=== PATIENT | male | born 1945 | race Hispanic/Latino ===

== ENCOUNTER 2017-03-03 11:32 | Emergency (ER) | payer MEDICARE, MEDICAID ==
--- NOTE | 2017-03-03 12:15 | RAD ---
THREE VIEWS OF THE RIGHT SHOULDER: 03/03/2017 HISTORY: Right shoulder pain. No history of injury. COMPARISON: None. FINDINGS: There is dense opacity in the right perihilar region and right lung apex, stable when compared to a c hest radiograph performed on 04/16/2015. There is degenerative change involving the right AC joint with superior osteophyte formation. There is no widening of the right AC or CC interspace. There is no displaced fracture or evidence of dislo cation seen. There is an incompletely imaged transvenous pacing device. IMPRESSION: No acute fracture or dislocation seen. POS: [facility]
== END 2017-03-03 13:53 | disposition home or self-care (01) ==
LOC: ERS 11:32
DX: S43.401A Unspecified sprain of right shoulder joint, initial encounter (principal); E11.9 Type 2 diabetes mellitus without complications; E78.5 Hyperlipidemia, unspecified; I12.0 Hypertensive chronic kidney disease with stage 5 chronic kidney disease or end stage renal disease; N18.6 End stage renal disease; X58.XXXA Exposure to other specified factors, initial encounter

== ENCOUNTER 2017-03-15 21:02 | Observation (INO) | payer MEDICARE, MEDICAID ==
[2017-03-15 21:45] LABS: #Eosinphils 0.7 thou/uL (0.0-0.7); #Lymphocytes 1.6 thou/uL (1.20-3.40); #Monocytes 0.7 thou/uL (0.11-0.59); #Neutrophils 4.3 thou/uL (1.40-6.50); %Basophils 0.1 % (0.0-1.0); %Eosinophils 9.3 % (0.0-10.0); %Monocytes 9.4 % (0.0-10.0); Hematocrit 34.2 % (42.0-52.0); Mean Platelet Volume 6.5 fL (7.4-10.4); Red Blood Cell (RBC) Count 3.36 mill/uL (4.70-6.10); White Blood Cell (WBC) Count 7.3 thou/uL (4.8-10.8)
[2017-03-15 21:51] LABS: Bilirubin Negative (Negative); Blood, Urine Negative (Negative); Glucose, Urine (Dipstick) 100 mg/dL (Negative); Ketone, Urine Negative (Negative); Nitrite Negative (Negative); Protein, Urine (Dipstick) 300 mg/dL (Neg-Trace); Urobilinogen 0.2 mg/dL (0.2-1.0)
[2017-03-15 21:53] LABS: Bacteria/HPF None Seen HPF (None Seen); Hyaline Casts/LPF 0-3 HYALINE CAST LPF (0-3 Hyaline); RBC/HPF 0-3 HPF (0-3); Squamous Epithelial None Seen HPF (0-3); WBC/HPF None Seen HPF (0-3)
[2017-03-15 22:01] LABS: Lactic Acid - Sepsis 0.9 mmol/L (0.5-2.2)
--- NOTE | 2017-03-15 22:05 | RAD ---
RADIOGRAPH CHEST 1 VIEW: Date: 03/15/17 Time: 9:08 p.m. HISTORY: 71-year-old male with chest pain. COMPARISON: 04/16/15. FINDINGS: Left subclavian multilead AICD. Cardiomegaly. Dense, chronic opacification with volume loss at right pulmonary apex, causing chronic severe rightward deviation of the trachea. Extensive calcified pleura l plaque in the right hemithorax. Diffusely prominent interstitial markings bilaterally. No pneumotho rax. No new consolidation identified. No interval change overall. IMPRESSION: 1. Chronic consolidation with volume loss of right lung apex causing traction deviation of the t rachea to the right. 2. Unilateral calcified right pleural plaque, probably sequela of previous right empyema. 3. Cardiomegaly. 4. Automatic implantable cardioverter/defibrillator. 5. Chronic interstitial densities diffusely bilaterally throughout the lungs. 6. No interval change detected compared to 04/16/15. JESS [] POS: [facility]
[2017-03-15 22:07] LABS: ALT (SGPT) 9 U/L (8-55); AST (SGOT) 15 U/L (5-34); Alkaline Phosphatase 99 U/L (40-150); Anion Gap 17 mmol/L (10-20); BUN (Urea Nitrogen) 52 mg/dL (8.4-25.7); Bilirubin, Total 0.6 mg/dL (0.2-1.2); Calc. Creatinine Clearance 0 mL/min (70-130); Calcium 9.4 mg/dL (7.8-10.44); Carbon Dioxide 30 mmol/L (23-31); Chloride 94 mmol/L (98-107); Estimated GFR-MDRD 7; Lipase 43 U/L (8-78); Protein, Total 7.9 g/dL (5.8-8.1)
[2017-03-15] MEDS ORDERED: Ondansetron HCl/PF 4 MG/2 ML Vial IVP PRN (23:32)
[2017-03-15] MEDS ORDERED: Ondansetron ODT 4 MG TAB SL PRN (23:32)
[2017-03-15] MEDS ORDERED: Acetaminophen 325 MG TAB PO PRN (23:32)
[2017-03-15 23:54] VITALS: BMI 23.3
[2017-03-16] MEDS ORDERED: HYDROcodone/Acetaminophen 5/325 mg Tablet PO PRN (00:16)
[2017-03-16] MEDS ORDERED: Dextrose 5% in Water 1,000 ML IV PRN (00:25)
[2017-03-16] MEDS ORDERED: Dextrose 50% Abboject 50 ML SYRINGE SLOW IVP PRN (00:25)
[2017-03-16] MEDS ORDERED: HumaLOG 300 UNITS/3 ML VIAL SC PRN ×2 (00:25)
--- NOTE | 2017-03-16 00:25 | PDOC.EVN ---
Event Note - Event Note Event Note: [id number] H&P Dictated 1. ESRD 2. HTN 3. Acute urinary retention 4. Hyperkalemia plan: see orders
[2017-03-16 04:31] VITALS: TEMP 98.6
[2017-03-16 05:06] LABS: Anion Gap 18 mmol/L (10-20); BUN (Urea Nitrogen) 56 mg/dL (8.4-25.7); Calc. Creatinine Clearance 8 mL/min (70-130); Calcium 8.9 mg/dL (7.8-10.44); Carbon Dioxide 28 mmol/L (23-31); Chloride 96 mmol/L (98-107); Estimated GFR-MDRD 7
[2017-03-16 05:14] LABS: #Eosinphils 0.6 thou/uL (0.0-0.7); #Lymphocytes 1.2 thou/uL (1.20-3.40); #Monocytes 0.6 thou/uL (0.11-0.59); #Neutrophils 4.4 thou/uL (1.40-6.50); %Basophils 0.1 % (0.0-1.0); %Eosinophils 9.3 % (0.0-10.0); %Lymphocytes 17.8 % (21.0-51.0); Hematocrit 31.5 % (42.0-52.0); Mean Platelet Volume 6.9 fL (7.4-10.4); Red Blood Cell (RBC) Count 3.14 mill/uL (4.70-6.10); White Blood Cell (WBC) Count 6.9 thou/uL (4.8-10.8)
--- NOTE | 2017-03-16 08:08 | HP ---
DATE OF ADMISSION: 03/16/2017 CHIEF COMPLAINT: Urinary retention. HISTORY OF PRESENT ILLNESS: Patient is a 71-year-old male with past medical history of end-stage renal disease, hypertension, diabetes mellitus type 2, now came to the ER for urinary retention. Patient's last administration 1 week back since then he has having lower abdominal pain. Abdominal pain is suprapubic, constant pain, moderate in intensity, resolved after placing Haney catheter. Patient had Haney catheter placed in the ER. Patient had a urine output of 700 mL. Patient denies any nausea, denies any vomiting, denies any fever, denies any chills. PAST MEDICAL HISTORY: As per HPI. PAST SURGICAL HISTORY: AV fistula placement, AICD. SOCIAL HISTORY: Denies smoking, denies alcohol, denies any drugs. FAMILY HISTORY: Denies any heart problems. MEDICATIONS: Reviewed. REVIEW OF SYSTEMS: Constitutional: Denies any fever, denies any chills. Eyes : Denies any vision problems. Ears: Denies any hearing loss. Neck: Denies any neck pain. Cardiovascular: Denies any chest pain. Respiratory: Denies any dyspnea. Denies any cough. Gastrointestinal: Denies nausea, vomiting. Genitourinary: Positive for urinary retention. Integument: Denies any rash. All other review of systems are reviewed and are negative. PHYSICAL EXAMINATION: CONSTITUTIONAL/VITAL SIGNS: At the time of H&P performed, blood pressure is 130 /70, afebrile, pulse ox 97%. GENERAL: The patient appears comfortable. HEENT: Pupils are equal, round, and reactive. Anterior nares patent. Nose normal. Ears normal. Teeth intact. Tongue is moist. NECK: Supple, no JVD. CARDIOVASCULAR: S1, S2 present. Regular rate and rhythm, no murmurs, no rubs, no gallops. RESPIRATORY SYSTEM: No wheezing, no rhonchi. Breath sounds bilaterally. GASTROINTESTINAL: Abdomen is soft, nontender, no guarding, no organomegaly, no masses felt. MUSCULOSKELETAL: No edema. PSYCHIATRIC: Mood appropriate at this time. INTEGUMENTARY: No obvious rashes seen. LABORATORY DATA: At the time of H&P performed white count 7.3, hemoglobin 11.3 , platelet count is 262. BMP shows sodium 135, potassium 5.8, chloride 94, CO2 30, BUN 52, creatinine 7.41, glucose 158, UA protein 300, glucose 100. ASSESSMENT AND PLAN: The patient is 68-year-old male 1. Acute urinary retention. Continue Haney catheter. Plan to consult urology to evaluate the patient. Plan to place the patient on Flomax 0.4 mg p.o. daily. 2. End-stage renal disease plus hyperkalemia. Treat hyperkalemia medically. Nephrology will consult, possible dialysis in the a.m. 3. Hypertension. Monitor blood pressures. Continue home blood pressure medications. Hold lisinopril. 4. Diabetes mellitus type 2. Monitor blood sugars. We will do insulin sliding scale. Continue glipizide. Case was discussed in detail with the patient. RISSA
[2017-03-16 08:38] LABS: Hemoglobin A1c 6.7 % (4.0-6.0)
[2017-03-16] MEDS ORDERED: Tamsulosin HCl 0.4 MG CAP PO SCH (09:00)
[2017-03-16] MEDS ORDERED: FLU VACC TS2017-18 (>65YR) 0.5 ML SYRINGE IM ONE (09:00)
[2017-03-16] MEDS ORDERED: Aspirin 81 mg Enteric Coated Tablet PO SCH (09:00)
[2017-03-16] MEDS ORDERED: Clopidogrel Bisulfate 75 MG TAB PO SCH (09:00)
[2017-03-16] MEDS ORDERED: Famotidine 20 MG TAB PO SCH (09:00)
--- NOTE | 2017-03-16 09:26 | CON ---
DATE OF CONSULTATION: 03/16/2017 INPATIENT GENITOURINARY CONSULTATION REASON FOR REFERRAL: Urinary retention. HISTORY OF PRESENT ILLNESS: Mr. Garcia is a non-Korean speaking male who presents with history of difficulty voiding. He states that he normally urinates approximately 1 times per day; however, unable to void for the last few days. A Haney catheter was placed by the emergency room 16 Japanese 3-way, 700 mL of post-void residual urine obtained. Urinalysis initially obtained demonstrates 300 protein, 100 glucose, no evidence of microscopic or gross hematuria. On exam today he does have pink-tinged hematuria. Apparently comfortable and does relate some resolution of abdominal discomfort. PAST MEDICAL HISTORY: 1. Diabetes. 2. Hyperlipidemia. 3. Hypertension. 4. Congestive heart failure. 5. Coronary artery disease. Dr. Rodriguez 6. End-stage renal disease, on chronic dialysis. PAST SURGICAL HISTORY: Fistula of the left arm, right knee surgery, coronary artery drug-eluting stent 06/17/[address] Rodriguez. PSYCHIATRIC HISTORY: Negative. SOCIAL HISTORY: Denies alcohol or tobacco abuse. ALLERGIES: No known drug allergies. CURRENT MEDICATIONS: Include baby aspirin, Plavix 75 mg, glipizide, glucagon, heparin subcu t.i.d., isosorbide, metoprolol with Zofran, sevelamer. PHYSICAL EXAMINATION: VITAL SIGNS: Stable at 98.6, 16, 94, 163/78. GENERAL: Patient is in no acute distress, undergoing hemodialysis uneventfully. HEART: Regular rate. LUNGS: Clear to auscultation. ABDOMEN: Soft, nontender, nondistended. GENITOURINARY: Uncircumcised phallus. Catheter is adequately secured, demonstrating pink-tinged hematuria. EXTREMITIES: No cyanosis, clubbing or edema. Testes are descended. RECTAL: Digital rectal exam demonstrates approximately 40 gram prostate with no gross nodularity. Base of the prostate is somewhat difficult to palpate. PERTINENT LABORATORY DATA: White count 6, hemoglobin 10, platelets 248, creatinine 7.8. Urinalysis: 300 protein, 100 glucose, negative rbcs, negative wbcs. There is no imaging of record in our system. IMPRESSION/PLAN: 1. Mr. Garcia is a 71-year-old male, non-Korean speaking who has past medical history of end-stage renal disease and hemodialysis per history of voids 1 times per day. 2. History of coronary artery disease status post drug-eluting stent. 3. Congestive heart failure with last stress test 03/2015 demonstrating an EF of 31% with global hypokinesis. Current admission is due to abdominal pain due to acute urinary retention of 700 mL of post-void residual. His Haney catheter is in place, draining pink-tinged urine, I suspect hematuria likely catheter related as well as multiple antiplatelet therapy; however, be prudent to obtain a CT hematuria protocol. Continue indwelling Haney catheter for now, will initiate Flomax. Elective cystoscopy. Plan voiding trial in the next 1-2 weeks after medical therapy has been provided with bladder rest due to significant PVR. Hemoglobin A1c will be obtained to rule out significant diabetic cystopathy component for poorly controlled diabetes. We will follow along with you on this admission. RISSA
[2017-03-16 11:52] VITALS: BP 166/77
--- NOTE | 2017-03-16 12:25 | PDOC.EVN ---
Event Note - Event Note Event Note: Chart reviewed. Pt seen during dialysis. Will follow.
[2017-03-16] MEDS: Sevelamer Carbonate 800 MG TAB PO SCH ×2 (13:47→14:02)
[2017-03-16] MEDS: Heparin 5,000 UNITS/ML VIAL SC SCH ×2 (13:49→15:27)
[2017-03-16] MEDS: hydrALAZINE 10 MG TAB PO SCH ×2 (13:49→14:02)
--- NOTE | 2017-03-16 15:05 | CT ---
CT ABDOMEN AND PELVIS WITH AND WITHOUT IV CONTRAST: Indication: History of hematuria. Comparison: Noncontrast CT dated 08-02-11 FINDINGS: There is basilar atelectasis. There is suspicion for a trace small right pleural effusion. Both kidneys are atrophic in appearance which are most pronounced than on the prior exam. There are p rominent renal vascular calcifications bilaterally. There is a tiny punctate calcification within the inferior pole of the left kidney measuring 2 mm and may reflect a tiny nonobstructing stone. No hydr onephrosis is grossly evident. No definite ureteral calculus is noted. Haney catheter decompresses th e bladder. The bladder wall is difficult to evaluate on this exam due to the whitman be coapted The prostate is enlarged measuring 5.1 cm. There is a prominent amount of retained stool within the colon. There is a normal appendix in the rig ht lower quadrant. 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 There is scattered degenerative and osteoarthritic change. There are prominent vascular calcifications involving the dominant pelvic vasculature. No free fluid or pa thologically enlarged lymph nodes are evident. IMPRESSION: 1. Small atrophic appearing kidneys likely reflecting sequellae of underlying chronic medical renal d isease. 2. No definite solid renal lesion demonstrated. 3. Tiny hypodensities involving both kidneys, too small to characterize but statistically likely refl ective of a tiny cyst. 4. Tiny suspected nonobstructing calculus in the inferior pole left kidney measuring 2 mm. 5. Coapted bladder whitman due to decompression from Haney catheter. 6. Prominent amount of retained stool. 7. Trace right pleural effusion. Bibasilar atelectasis. 8. Prostate enlargement. 9. Findings were discussed with Dr. Knight at 1:50 p.m. on 03-16-17. POS: [facility]
--- NOTE | 2017-03-16 15:11 | PRG ---
DATE OF SERVICE: 03/16/2017 INPATIENT PROGRESS NOTE followup assessment, family at bedside. Per family, with translation, patient voids about 2-3 times a day. Urine output is pink /yellow tinged. CT demonstrates no significant pathology of concern. Patient would be hemodialyzed tomorrow. From urologic perspective, he may be discharged home anytime. Appointment with me provided for voiding trial on 03/26/2017 at 1:00 p.m., patient to bring all bottles of his medication. I did write for patient a prescription for Flomax 0.4 mg one p.o. daily, #30 with 5 refills. His Haney catheter was then transitioned to a leg bag, patient and family instructed regarding catheter care. Will sign off, call if any questions or concerns. RISSA
[2017-03-16] MEDS ORDERED: ISOVUE-370 76%-LOCM 1 ML ONE (17:46)
[2017-03-16] MEDS ORDERED: Simvastatin 20 MG TAB PO SCH (21:00)
--- NOTE | 2017-03-16 22:27 | DIS ---
DATE OF ADMISSION: 03/15/2017 DATE OF DISCHARGE: 03/16/2017 PRIMARY CARE PROVIDER: Maia Salgado PA-C CONSULTATIONS DURING THIS HOSPITALIZATION: Urology, Dr. Aide Knight and Nephrology, Dr. Zak Schofield. DISCHARGE DIAGNOSIS: Acute urinary retention. HOSPITAL COURSE: Mr. Karri Zeng is a pleasant 71-year-old gentleman who was admitted to [facility] on 03/16/2017 for acute urinary retention. He had a Haney catheter plac ed. He was seen by Urology Service. He was transitioned to a leg bag by Neurology Service, patient and his family were instructed regarding catheter care. He received a prescription for Flomax 0.4 mg once daily from Urology service. He is advised to follow up with Dr. Knight on 03/26/2017 at 1 :00 p.m. and with his primary care provider in 3-5 days. DISCHARGE MEDICATIONS: Include Flomax 0.4 mg daily, aspirin 81 mg daily, Plavix 75 mg daily, glipizi de 10 mg 2 times a day, hydralazine 10 mg 3 times a day, Imdur 120 mg daily, lisinopril 2.5 mg daily, Toprol-XL 25 mg at bedtime, Renvela 3200 mg 3 times a day, and simvastatin 20 mg at bedtime. He was also seen by Nephrology Service and received maintenance hemodialysis. On the day of discharge, he has a white count of 6900, hemoglobin 10.3, platelet count 248,000. Sodi um 136, potassium 5.6 prior to dialysis, creatinine 7.85 prior to dialysis. Hemoglobin A1c during [facility] hospitalization was 6.7. Many thanks for allowing me to participate in your patient's care. Please feel free to contact me wi th any questions or concerns. DISCHARGE DESTINATION: Home.
--- NOTE | 2017-03-17 06:12 | CON ---
DATE OF CONSULTATION: 03/16/2017 CONSULTING PHYSICIAN: Dr. Patiño. REASON FOR CONSULTATION: End-stage renal disease evaluation and care. REASON FOR ADMISSION: Urinary retention. HISTORY OF PRESENT ILLNESS: This is a 71-year-old male with history of end-stage renal dise ase, hypertension, type 2 diabetes, coronary artery disease, who came to the hospital with urinary re tention and abdominal pain and was admitted. He is on indwelling Haney and Urology evaluation is pen ding. No fever or chills. No nausea or vomiting, no chest pain, no palpitation reported. Complaints of ab dominal pain, which is better after Haney placement and he had 700 mL of residual urine after the kuldip cement of Haney. He is on dialysis, making minimal amount of urine. He has been having problem with voiding for a week now. PAST MEDICAL HISTORY: Positive for end-stage renal disease on hemodialysis Friday, Friday, and ; hypertension; type 2 diabetes; and coronary artery disease. PAST SURGICAL HISTORY: AV fistula placement and AICD. HOME MEDICATIONS: Include glipizide, Renvela, Toprol, Apresoline, simvastatin, Zestril, Imdur, aspir in, and Plavix. ALLERGIES: No known drug allergies. SOCIAL HISTORY: No smoking, alcohol or illicit drug abuse. FAMILY HISTORY: No history of any kidney disease. REVIEW OF SYSTEMS: The following complete review of systems was negative, unless otherwise mentioned in the HPI or below: Constitutional: Weight loss or gain, ability to conduct usual activities. Skin: Rash, itching. Eyes: Double vision, pain. ENT/Mouth: Nose bleeding, neck stiffness, pain, tenderness. Cardiovascular: Palpitations, dyspnea on exertion, orthopnea. Respiratory: Shortness of breath, wheezing, cough, hemoptysis, fever or night sweats. Gastrointestinal: Poor appetite, abdominal pain, heartburn, nausea, vomiting, constipation, or diarr hea. Genitourinary: Urgency, frequency, dysuria, nocturia. Musculoskeletal: Pain, swelling. Neurologic/Psychiatric: Anxiety, depression. Allergy/Immunologic: Skin rash, bleeding tendency. PHYSICAL EXAMINATION: GENERAL: This is a thin-built male, in no apparent distress. VITAL SIGNS: Temperature 98.6, pulse 74, respiratory rate 16, blood pressure 163/70. HEENT: Atraumatic, normocephalic. Oral mucosa is moist. NECK: Supple, no masses. CARDIOVASCULAR: S1, S2 heard. Rate and rhythm regular. RESPIRATORY: Clear. GASTROINTESTINAL: Abdomen is soft. MUSCULOSKELETAL: No tenderness. No edema. DERMATOLOGIC: No skin rash. NEUROLOGIC: Alert and awake. PSYCHIATRIC: Mood and affect normal. GENITOURINARY: Haney catheter with blood tinged urine. LABORATORY DATA: Potassium is 5.8, BUN is 56, creatinine is 7.8. Hemoglobin is 11.3. ASSESSMENT AND PLAN: 1. End-stage renal disease with hyperkalemia. Plan to have emergent dialysis. . 2. Hyperkalemia. Limit potassium in the diet, most likely from urinary retention. We will continue on dialysis Friday, Friday, and Friday. 3. Edema, controlled. 4. Hypertension. 5. Anemia, mild. Monitor potassium closely. Dialysis as tolerated. We will continue to follow. Thank you for the consult.
== END 2017-03-16 17:00 | disposition home or self-care (01) ==
LOC: ERS 21:02 → 2SW 22:35
PROVIDERS: ADMIT Internal Medicine; ATTEND Internal Medicine
DX: R33.9 Retention of urine, unspecified (principal); E11.22 Type 2 diabetes mellitus with diabetic chronic kidney disease; I13.2 Hypertensive heart and chronic kidney disease with heart failure and with stage 5 chronic kidney disease, or end stage renal disease; I50.9 Heart failure, unspecified; N18.6 End stage renal disease; E87.5 Hyperkalemia; I25.10 Atherosclerotic heart disease of native coronary artery without angina pectoris; R10.9 Unspecified abdominal pain; R60.9 Edema, unspecified; D63.1 Anemia in chronic kidney disease; Z99.2 Dependence on renal dialysis; Z79.84 Long term (current) use of oral hypoglycemic drugs; Z79.02 Long term (current) use of antithrombotics/antiplatelets; Z79.899 Other long term (current) drug therapy; Z95.810 Presence of automatic (implantable) cardiac defibrillator; Z95.818 Presence of other cardiac implants and grafts; Z98.890 Other specified postprocedural states
CPT/HCPCS: 51702; 71010; 74178; 80048; 80053; 82947; 83036; 83605; 83690; 85025 ×2; 87086; 99285; G0378; 36415; 81003; 81015; 90935; A4216; G0257; J1644

== ENCOUNTER 2017-06-13 11:45 | Emergency (ER) | payer MEDICARE, MEDICAID ==
[2017-06-13 13:06] LABS: #Eosinphils 0.4 thou/uL (0.0-0.7); #Lymphocytes 0.6 thou/uL (1.20-3.40); #Monocytes 0.5 thou/uL (0.11-0.59); #Neutrophils 3.6 thou/uL (1.40-6.50); %Basophils 0.4 % (0.0-1.0); %Eosinophils 8.2 % (0.0-10.0); %Lymphocytes 12.4 % (21.0-51.0); %Monocytes 8.8 % (0.0-10.0); %Neutrophils 70.3 % (42.0-75.0); Hemoglobin 10.6 g/dL (14.0-18.0); Mean Corpuscular Hemoglobin 32.6 pg (27.0-31.0); Mean Platelet Volume 7.4 fL (7.4-10.4); Platelet Count 173 thou/uL (130-400); RBC Distribution Width 12.8 % (11.5-14.5); Red Blood Cell (RBC) Count 3.24 mill/uL (4.70-6.10); White Blood Cell (WBC) Count 5.2 thou/uL (4.8-10.8)
[2017-06-13 13:12] LABS: INR-International Normal Ratio 1.1; PTT 32.2 SEC (22.9-36.1); Prothrombin Time 14.7 SEC (12.0-14.7)
[2017-06-13 13:29] LABS: ALT (SGPT) 10 U/L (8-55); AST (SGOT) 13 U/L (5-34); Albumin 4.4 g/dL (3.4-4.8); Alkaline Phosphatase 141 U/L (40-150); Anion Gap 13 mmol/L (10-20); BUN (Urea Nitrogen) 16 mg/dL (8.4-25.7); Bilirubin, Total 0.7 mg/dL (0.2-1.2); Calc. Creatinine Clearance 0 mL/min (70-130); Calcium 9.7 mg/dL (7.8-10.44); Carbon Dioxide 35 mmol/L (23-31); Chloride 93 mmol/L (98-107); Estimated GFR-MDRD 15; Globulin 3.9 g/dL (2.4-3.5); Glucose 215 mg/dL (83-110); Magnesium 2.2 mg/dL (1.6-2.6); Potassium 4.5 mmol/L (3.5-5.1); Protein, Total 8.3 g/dL (5.8-8.1); Sodium 136 mmol/L (136-145)
--- NOTE | 2017-06-13 13:30 | RAD ---
PORTABLE CHEST: Date: 06/13/17 HISTORY: Shoulder pain. Back pain. COMPARISON: 03/15/17. FINDINGS: Cardiomegaly. Mild vascular engorgement. Opacification in the right apex with evidence of cicatrizati on and deviation of the trachea into the right apex is again noted. These findings were all stable. P acemaker leads are unchanged. IMPRESSION: Stable chest findings. POS: [facility]
[2017-06-13 13:36] LABS: CKMB 1.3 ng/mL (0-6.6); Troponin I 0.028 ng/mL (< 0.028)
[2017-06-13] MEDS ORDERED: Nitroglycerin 2% Ointment 1 INCH/1 GM Packet ONE (14:38)
[2017-06-13] MEDS ORDERED: Furosemide 40 MG/4 ML VIAL ONE (14:38)
--- NOTE | 2017-06-13 16:52 | CON ---
DATE OF CONSULTATION: 06/13/2017 DATE OF ADMISSION: 06/13/2017 PRIMARY CARE PHYSICIAN: Dr. Caldwell PRIMARY ICD 9 CODER: Rory Wall M.D. PRIMARY WELDER APPRENTICE COMBINATION: Charly Rodriguez M.D. REQUESTING PHYSICIAN: Tamar Baron M.D., in the Emergency Department. CHIEF COMPLAINT: Right shoulder pain and newly elevated BNP. HISTORY OF PRESENT ILLNESS: Mr. Karri Zeng is a 71-year-old male with history of end-stage renal disease on Friday, Friday, Friday hemodialysis at [facility], followed by Dr. Wall chronically. He also has diabetes mellitus type 2, non-insulin dependent, hypertension, BPH, coronar y artery disease and hyperlipidemia. He does have a history of a PTCA in 09/2016 and had 3 stents placed to the right coronary artery, but also has severe small vessel disease that required necessitated medical management. The patient pre sents to the emergency department today with complaints of right back pain radiating up to the should er and down the upper part of the right arm that began about 2 weeks ago after he picked up a heavy b ucket. He has had trouble lying flat or lying on that side because of increased pain. Denies any sh ortness of breath. He typically slept in bed on 2 pillows for quite a long time. He tried taking Motrin once that did not seem to really help. The pain persisted for 2 weeks without relenting. When asked of like this previous cardiac pain, he said nothing like it. He said sometimes putting pressure on the area makes the pain go away for a little while, but movemen t certainly makes it worse. He denies any fevers or chills, no nausea or vomiting, no diarrhea or constipation, no dyspnea on exe rtion. He denies any PND or orthopnea. Last echocardiogram here was done on 04/17/2015 showed EF of 40%-45% with a moderate global hypokines is. Grade I diastolic dysfunction present, fairly normal valves except for moderate MR and trace TR. He is set up to have another echocardiogram done next week with Dr. Rodriguez and see him in followup soon. No other current complaints. PAST MEDICAL HISTORY: 1. End-stage renal disease, on Friday, Friday, Friday hemodialysis at [facility]. 2. Diabetes mellitus type 2, non-insulin dependent. 3. Hypertension. 4. BPH. 5. Coronary artery disease. 6. Hyperlipidemia. PAST SURGICAL HISTORY: 1. PTCA with stents x3 in 09/2016. 2. Permanent pacemaker placement sometime in 2014, looks like on 06/22/2014. He had a pacemaker kuldip abena for inducible sustained monomorphic V-tach and significant AV tara dysfunction with chronic isch emic cardiomyopathy and class 2-3 congestive heart failure, systolic and diastolic combined. He had placement at time of intraventricular ICD generator and right atrial pacing lead and right ventricula r transvenous defibrillator lead and pacing leads. This is a Carenat[employer] device including generator, a trial, left ventricular and transvenous defibrillator leads. This was placed by Dr. Nicholas Guerrero. He also had left arm fistula placement sometime around 2011 and 2012. MEDICATIONS: 1. Zocor 20 mg p.o. at bedtime. 2. Isosorbide mononitrate 120 mg p.o. daily. 3. Glipizide 10 mg daily. 4. Hydralazine 10 mg p.o. t.i.d. 5. Toprol-XL 50 mg daily. 6. Plavix 75 mg daily. 7. Flomax 0.4 mg p.o. at bedtime. 8. Aspirin 81 mg daily. 9. Lisinopril 2.5 mg p.o. daily. 10. Renvela 1600 mg p.o. t.i.d. a.c. ALLERGIES: NKDA. FAMILY HISTORY: Negative for clotting or bleeding disorder, no immune dysfunction. SOCIAL HISTORY: Negative for habits x3. He did have a history of heavy alcohol use and quit about h meron a year ago. REVIEW OF SYSTEMS: Ten point review of systems performed, negative for all systems except stated as per HPI. PHYSICAL EXAMINATION: VITAL SIGNS: Temperature 98.8, pulse 84, blood pressure 148/75, respiratory rate 12, satting 95% on room air. GENERAL: He is awake. He is alert. He is oriented x3. He is an elderly Latin-Greek male appear s to be in no acute distress. HEENT: Normocephalic, atraumatic. Pupils equal, reactive bilaterally. Mucous membranes are moist. No visible lesions. No thrush. NECK: Supple, without lymphadenopathy, JVD, or thyromegaly. Normal carotid without bruits. LUNGS: Clear anteriorly, posteriorly has some faint bibasilar crackles. CARDIOVASCULAR: He has regular rhythm. He is paced on the monitor. He has normal S1 and S2. He do es have a grade 2-3/6 holosystolic murmur best heard at the apex. ABDOMEN: Soft, it is nontender, nondistended. No masses or organomegaly. EXTREMITIES: No cyanosis, no clubbing. Trace pedal edema. He has got thready dorsalis pedis and po sterior tibial pulses. Left upper arm AV fistula has a palpable thrill. SKIN: Otherwise warm, moist and well well-perfused. He has no other rash or lesion. MUSCULOSKELETAL: Large joints appear normal. There is no inflammation. No palpable effusions. He is tender to palpation along the scaliness in the rhomboideus muscles on the right posterior chest. It reproduces his pain, feels better with a constant pressure, but is tender. He gets a referral of pain when manipulated up to the upper shoulder and down his arm and reproduces his symptoms. NEUROLOGIC: Cranial nerves II-XII are grossly intact. He has no focal neurologic deficits, and norm al speech pattern. LABORATORY EVALUATION: Sodium 136, potassium 4.5, chloride 93, bicarbonate 35, BUN 16, creatinine 3. 93, and glucose is 215. He got complete normal liver functions. CBC showed a white count of 5.2, hemoglobin 10.6, hematocrit of 32.1, platelet count 173,000. BNP wa s 2070.3 which is actually the best since 03/2014. Two months ago, he was at [id number]. INR is 1.1. CK-MB normal at 1.3. Troponin I is normal at 0.028. RADIOGRAPHIC STUDIES: He has a chest x-ray with no acute cardiopulmonary changes and stable chronic changes, particularly to the right upper lobe area. ASSESSMENT AND PLAN: 1. Musculoskeletal, right-sided back pain after lifting heavy bucket. The patient sustained a rhomb oideus muscle strain. At this point, we will place him on Flexeril 10 mg p.o. t.i.d. p.r.n., a presc ription for 30 tablets has been sent to the pharmacy. It is liver metabolized, does not need to be r enally dosed. We also sent a call-in prescription for Motrin 400 mg. He could use that t.i.d. as ne eded for pain. I did encourage him to use a low to medium setting on a heating pad several times a d ay and I recommended he take it easy without arm and shoulder for the next several days. 2. Coronary artery disease. The patient had 3 stents placed in his right coronary artery back on ; prior to that in 05/2014 he had stent placed to left circumflex. His last heart catheterizati on had revealed severe small vessel disease that was not amenable to percutaneous intervention. I wi ll continue his medical management. He has an appointment with Dr. Rodriguez coming up and echo plan carlitos for next week. 3. Chronic systolic, diastolic congestive heart failure secondary to ischemic cardiomyopathy and hyp ertensive cardiomyopathy accordingly. His BNP is actually better than it has been in over 2 years. This was discussed with the emergency physicians and once they realized that they agreed that he brou ght it to be in the hospital. 4. Essential hypertension. The patient is pretty well controlled on his hydralazine, Toprol-XL, lis inopril. 5. End-stage renal disease, on hemodialysis. He takes Renvela 1600 mg t.i.d. We will continue. We will contact Dr. Wall and notify him of his presentation here. 6. History of Benign prostatic hypertrophy, on Flomax. We will continue. 7. Anemia of renal disease, managed by Dr. Wall. 8. Hyperlipidemia, on Zocor 20. The patient has excellent followup. We will let him go home from the emergency department. He is to return if his symptoms had returned that are typical to his regular chest pain or has increased conc nagi. Thank you very much for this consult. I will follow along with you.
== END 2017-06-13 15:59 | disposition home or self-care (01) ==
LOC: ERS 11:45
DX: S46.911A Strain of unspecified muscle, fascia and tendon at shoulder and upper arm level, right arm, initial encounter (principal); I25.10 Atherosclerotic heart disease of native coronary artery without angina pectoris; I13.2 Hypertensive heart and chronic kidney disease with heart failure and with stage 5 chronic kidney disease, or end stage renal disease; N18.5 Chronic kidney disease, stage 5; E11.22 Type 2 diabetes mellitus with diabetic chronic kidney disease; I50.9 Heart failure, unspecified; E78.5 Hyperlipidemia, unspecified; Z79.899 Other long term (current) drug therapy; Z79.82 Long term (current) use of aspirin; X58.XXXA Exposure to other specified factors, initial encounter
CPT/HCPCS: 71045; 80053; 82553; 83735; 83880; 84484; 85025; 85610; 85730; 93005; 94760; 96374; J1940

== ENCOUNTER 2018-06-01 09:49 | Emergency (ER) | payer MEDICARE, MEDICAID ==
[2018-06-01 10:28] LABS: #Eosinphils 0.9 thou/uL (0.0-0.7); #Lymphocytes 0.8 thou/uL (1.20-3.40); #Monocytes 0.4 thou/uL (0.11-0.59); %Basophils 0.5 % (0.0-1.0); %Eosinophils 11.2 % (0.0-10.0); %Lymphocytes 9.7 % (21.0-51.0); %Monocytes 5.2 % (0.0-10.0); %Neutrophils 73.3 % (42.0-75.0); Hemoglobin 11.9 g/dL (14.0-18.0); Mean Corpuscular HGB CONC 32.2 g/dL (32.0-36.0); Mean Corpuscular Volume 99.5 fL (78.0-98.0); Mean Platelet Volume 7.5 fL (7.4-10.4); Platelet Count 174 thou/uL (130-400); RBC Distribution Width 13.3 % (11.5-14.5); Red Blood Cell (RBC) Count 3.71 mill/uL (4.70-6.10); White Blood Cell (WBC) Count 8.2 thou/uL (4.8-10.8)
[2018-06-01 10:44] LABS: ALT (SGPT) 14 U/L (8-55); AST (SGOT) 18 U/L (5-34); Albumin 4.2 g/dL (3.4-4.8); Alkaline Phosphatase 126 U/L (40-150); Anion Gap 16 mmol/L (10-20); BUN (Urea Nitrogen) 30 mg/dL (8.4-25.7); Bilirubin, Total 1.1 mg/dL (0.2-1.2); Calc. Creatinine Clearance 0 mL/min (70-130); Calcium 9.8 mg/dL (7.8-10.44); Carbon Dioxide 33 mmol/L (23-31); Chloride 94 mmol/L (98-107); Estimated GFR-MDRD 9; Globulin 3.9 g/dL (2.4-3.5); Glucose 126 mg/dL (83-110); Potassium 4.1 mmol/L (3.5-5.1); Protein, Total 8.1 g/dL (5.8-8.1); Sodium 139 mmol/L (136-145)
== END 2018-06-01 13:24 | disposition home or self-care (01) ==
LOC: ERS 09:49
DX: R55 Syncope and collapse (principal); I12.0 Hypertensive chronic kidney disease with stage 5 chronic kidney disease or end stage renal disease; N18.6 End stage renal disease; E11.22 Type 2 diabetes mellitus with diabetic chronic kidney disease; E78.5 Hyperlipidemia, unspecified; Z79.82 Long term (current) use of aspirin; Z79.899 Other long term (current) drug therapy
CPT/HCPCS: 36415; 80053; 85025; 93005

== ENCOUNTER 2018-06-23 09:59 | Outpatient (CLI) | payer MEDICARE, MEDICAID ==
--- NOTE | 2018-06-23 12:09 | RAD ---
AIR CONTRAST ESOPHOGRAM: Indications; Dysphagia. Swallowed food sticking. FINDINGS: Esophagus shows numerous tertiary contractions. There is retraction of the upper esophagus to the rig ht at the area of right upper lobe scarring. There is luminal narrowing at the EG junction. A swallowed 12 mm barium tablet lodged at the EG junction and would not pass through with repeated sw allows. No reflux was demonstrated when patient was placed recumbent. IMPRESSION: 1. Mildly dilated mid and upper esophagus with retraction of the esophagus to the right in the area o f right upper lobe scarring. Dilatation of the upper mid esophagus. There are numerous tertiary contr actions. 2. Luminal narrowing at the EG junction. A 12 mm barium tablet would not pass through this area of st ricture. POS: CAROLYN
== END 2018-06-23 10:00 | disposition home or self-care (01) ==
LOC: RAD 09:59
PROVIDERS: ATTEND Physician Assistant Medical
DX: R13.10 Dysphagia, unspecified (principal); K21.9 Gastro-esophageal reflux disease without esophagitis; K22.8 Other specified diseases of esophagus; K22.2 Esophageal obstruction
CPT/HCPCS: 74220

== ENCOUNTER 2018-06-30 08:07 | Day surgery (SDC) | payer MEDICARE, MEDICAID ==
[2018-06-30 09:19] LABS: INR-International Normal Ratio 1.3; Prothrombin Time 16.3 SEC (12.0-14.7)
[2018-06-30] MEDS ORDERED: PROPOFOL 200 MG/20 ML VIAL ONE (13:36)
--- NOTE | 2018-06-30 18:07 | OP ---
DATE OF PROCEDURE: 06/30/2018 PROCEDURE PERFORMED: Esophagogastroduodenoscopy with esophageal dilation over guidewire and biopsy. PREOPERATIVE DIAGNOSES: Esophageal dysphagia. Barium esophagogram showed a dilated arxyr-sd-hiq esophagus and a hang-up of a barium tablet in the distal esophagus. DESCRIPTION OF PROCEDURE: Informed consent was obtained from the patient. He was sedated with total intravenous anesthesia. The endoscope was advanced easily to the second portion of the duodenum, and retroflexion was performed in the stomach. The esophagus had external compression in the dkb-rs-hdubg esophagus at the 25 cm level. There was no mucosal defect in this area. The esophagus insufflated well above and below this site. The scope could be advanced through the area to the distal esophagus. There was a slight ring in the distal esophagus above a 1-cm hiatal hernia. The stomach had nonerosive erythematous gastritis in the antrum. Biopsies were obtained to rule out H. pylori. Retroflexed views in the stomach were normal. There was a small amount of retained vegetable matter in the stomach fundus. The pylorus was normal, and the first portion of the duodenum was normal. The second portion of the duodenum had a tortuosity to advance the scope through into the distal second portion. There was no true focal stricture in this area; however, it was not easy to pass the scope through to the more distal duodenum. However, we were able to accomplish this. I biopsied the area of the tortuosity, but there again was no focal stricture or evidence of a mucosal mass or lesion focally. An esophageal dilator was passed. The esophagus was dilated to 18 mm with a Savary dilator over a guidewire. Second-look endoscopy showed no change in the esophageal mucosa after dilation. IMPRESSION: 1. External compression of the mid esophagus around 25 cm. This correlates with the findings on the barium esophagogram of a dilated more proximal esophagus. The esophagus above this area insufflated well, as it did below this area. This could be related to a prominent aortic arch or scar tissue in that area. 2. Slight esophageal ring above at the Z-line above a 1-cm hiatal hernia. Esophageal dilation was performed to 18 mm with a Savary dilator over a guidewire. There was no change on second-look endoscopy after dilation. 3. Erythematous gastritis in the antrum, biopsied to rule out Helicobacter pylori. 4. Tortuous second portion of the duodenum without obvious focal stricture or mucosal defect. Biopsies were obtained in this area. There was some very small amount of retained vegetable matter in the fundus of the stomach. RECOMMENDATIONS: 1. Await histopathology. 2. Follow up in GI clinic in 3 weeks. Job ID: [id number]
== END 2018-06-30 13:19 | disposition home or self-care (01) ==
LOC: SDC 08:07
PROVIDERS: ATTEND Internal Medicine Gastroenterology
PROC: 0DB78ZX Excision of Stomach, Pylorus, Via Natural or Artificial Opening Endoscopic, Diagnostic (ICD-10-PCS; principal; 2018-06-30)
PROC: 0D758ZZ Dilation of Esophagus, Via Natural or Artificial Opening Endoscopic (ICD-10-PCS; 2018-06-30)
DX: K22.2 Esophageal obstruction (principal); K31.9 Disease of stomach and duodenum, unspecified; K44.9 Diaphragmatic hernia without obstruction or gangrene; I25.10 Atherosclerotic heart disease of native coronary artery without angina pectoris; E78.5 Hyperlipidemia, unspecified; I11.0 Hypertensive heart disease with heart failure; I50.9 Heart failure, unspecified; Z79.02 Long term (current) use of antithrombotics/antiplatelets; Z79.82 Long term (current) use of aspirin; Z79.84 Long term (current) use of oral hypoglycemic drugs; Z79.899 Other long term (current) drug therapy; Z95.5 Presence of coronary angioplasty implant and graft
CPT/HCPCS: 85610; 88305; 88312

== ENCOUNTER 2018-07-30 13:52 | Emergency (ER) | payer MEDICARE, MEDICAID ==
[2018-07-30 15:39] LABS: #Lymphocytes 1.3 thou/uL (1.20-3.40); #Monocytes 0.5 thou/uL (0.11-0.59); #Neutrophils 4.5 thou/uL (1.40-6.50); %Basophils 0.3 % (0.0-1.0); %Lymphocytes 18.1 % (21.0-51.0); %Monocytes 7.1 % (0.0-10.0); %Neutrophils 60.5 % (42.0-75.0); Hemoglobin 11.3 g/dL (14.0-18.0); Mean Corpuscular Hemoglobin 33.4 pg (27.0-31.0); Mean Corpuscular Volume 98.1 fL (78.0-98.0); Mean Platelet Volume 7.1 fL (7.4-10.4); Platelet Count 242 thou/uL (130-400); Red Blood Cell (RBC) Count 3.37 mill/uL (4.70-6.10); White Blood Cell (WBC) Count 7.4 thou/uL (4.8-10.8)
[2018-07-30 16:04] LABS: ALT (SGPT) 10 U/L (8-55); AST (SGOT) 13 U/L (5-34); Alkaline Phosphatase 146 U/L (40-150); Anion Gap 17 mmol/L (10-20); BUN (Urea Nitrogen) 43 mg/dL (8.4-25.7); Bilirubin, Total 0.7 mg/dL (0.2-1.2); Calc. Creatinine Clearance 0 mL/min (70-130); Calcium 9.7 mg/dL (7.8-10.44); Carbon Dioxide 33 mmol/L (23-31); Chloride 91 mmol/L (98-107); Estimated GFR-MDRD 7; Glucose 205 mg/dL (83-110); Potassium 3.8 mmol/L (3.5-5.1); Protein, Total 8.2 g/dL (5.8-8.1); Sodium 137 mmol/L (136-145)
[2018-07-30 16:05] LABS: Globulin 4.2 g/dL (2.4-3.5)
--- NOTE | 2018-07-30 16:50 | ULT ---
Exam: Scrotal ultrasound including color and spectral Doppler imaging: HISTORY: Pain Right testes measures 2.7 x 2.0 x 2.8 cm. Left testes measures 2.4 x 2.1 x 3.2 cm. Both epididymal regions are within normal limits. Questionable small epididymal appendix. Questionable small hydrocele. Vascular flow is noted to both testes. No evidence for testicular torsion. IMPRESSION: Trace bilateral hydroceles. No intratesticular mass or testicular torsion.
--- NOTE | 2018-07-30 19:41 | CT ---
CT abdomen noncontrast CT pelvis noncontrast: (Urolithiasis protocol) DATE: 07/30/2018 HISTORY: 72-year-old male with left scrotal and left inguinal pain COMPARISON: 03/16/2017 TECHNIQUE: IV injection of iodinated contrast media: None Oral contrast media: None FINDINGS: Other than for urolithiasis, the lack of IV and oral contrast limits the evaluation. No inguinal hernia. No signs of colonic diverticulitis. No small bowel dilation. No appendicitis. No abdominal aortic aneurysm. Bilaterally atrophic kidneys. No hydronephrosis. No bladder calculus. Atherosclerotic calcification of renal arteries and branches makes it difficult to evaluate for small nephrolithiasis. No large nephrolithiasis. Within the limitations of noncontrast scan, no major pathology of liver, adrenals, pancreas, or splee n identified. Previously there was a Haney catheter. Currently, there is no Haney catheter. Bladder volume is small . No ascites or pneumoperitoneum. Small focal infiltrate-like density at posterior base of right lower lobe appears similar to prior CT , and is apparently chronic. There is a new finding of an approximately 4 x 2 x 3 cm well-circumscribed low density mass located p osterior to the left distal external iliac artery and vein, and anterior to the left acetabulum. It has a density of 20 Hounsfield units.. IMPRESSION: 1) no obstructive uropathy. 2) chronic renal failure. 3) low density mass at the left groin as described above. Without IV contrast, this cannot be further characterized. Etiology unknown. This may be the source of patient's pain..
== END 2018-07-30 21:00 | disposition home or self-care (01) ==
LOC: ERS 13:52
DX: R19.09 Other intra-abdominal and pelvic swelling, mass and lump (principal); E78.5 Hyperlipidemia, unspecified; I12.0 Hypertensive chronic kidney disease with stage 5 chronic kidney disease or end stage renal disease; N18.6 End stage renal disease; E11.22 Type 2 diabetes mellitus with diabetic chronic kidney disease; Z79.899 Other long term (current) drug therapy; Z79.01 Long term (current) use of anticoagulants; Z79.82 Long term (current) use of aspirin; Z79.84 Long term (current) use of oral hypoglycemic drugs
CPT/HCPCS: 36415; 74176; 76870; 80053; 85025; 93976

== ENCOUNTER 2018-08-09 10:52 | Inpatient (IN) | payer MEDICARE, MEDICAID ==
[2018-08-09] MEDS ORDERED: Piperacillin/Tazobactam 4.5 GM VIAL ONE (11:34)
[2018-08-09] MEDS ORDERED: Acetaminophen 500 MG TAB ONE ×2 (11:35→11:42)
[2018-08-09 11:38] LABS: #Eosinphils 0.2 thou/uL (0.0-0.7); #Lymphocytes 1.3 thou/uL (1.20-3.40); #Monocytes 0.9 thou/uL (0.11-0.59); #Neutrophils 14.7 thou/uL (1.40-6.50); %Basophils 0.2 % (0.0-1.0); %Eosinophils 1.4 % (0.0-10.0); %Lymphocytes 7.7 % (21.0-51.0); %Monocytes 5.1 % (0.0-10.0); %Neutrophils 85.8 % (42.0-75.0); Hemoglobin 10.5 g/dL (14.0-18.0); Mean Corpuscular HGB CONC 32.5 g/dL (32.0-36.0); Mean Corpuscular Volume 98.7 fL (78.0-98.0); Platelet Count 267 thou/uL (130-400); RBC Distribution Width 13.4 % (11.5-14.5); Red Blood Cell (RBC) Count 3.28 mill/uL (4.70-6.10); White Blood Cell (WBC) Count 17.1 thou/uL (4.8-10.8)
[2018-08-09 12:02] LABS: ALT (SGPT) 7 U/L (8-55); AST (SGOT) 9 U/L (5-34); Albumin 4.1 g/dL (3.4-4.8); Alkaline Phosphatase 125 U/L (40-150); Anion Gap 24 mmol/L (10-20); BUN (Urea Nitrogen) 55 mg/dL (8.4-25.7); Bilirubin, Total 0.7 mg/dL (0.2-1.2); CK (CPK) 55 U/L (30-200); Calc. Creatinine Clearance 0 mL/min (70-130); Calcium 9.4 mg/dL (7.8-10.44); Carbon Dioxide 24 mmol/L (23-31); Chloride 91 mmol/L (98-107); Estimated GFR-MDRD 6; Globulin 3.8 g/dL (2.4-3.5); Glucose 92 mg/dL (83-110); Lipase 18 U/L (8-78); Magnesium 2.1 mg/dL (1.6-2.6); Potassium 4.7 mmol/L (3.5-5.1); Protein, Total 7.9 g/dL (5.8-8.1); Sodium 134 mmol/L (136-145)
[2018-08-09] MEDS ORDERED: Iopamidol 370 76% 100 ML VIAL ONE (12:03)
[2018-08-09] MEDS ORDERED: Vancomycin HCl 1 GM in Premix Bag 1 BAG IVPB SCH ×2 (12:15→17:15)
--- NOTE | 2018-08-09 12:26 | CT ---
CT OF THE ABDOMEN AND PELVIS WITH IV CONTRAST INDICATION: Right inguinal pain, fever and reported mass in the inguinal region COMPARISON: CT abdomen and pelvis without contrast dated July 30, [address] of the abdomen and pelv is with and without contrast dated March 16, 2017. FINDINGS: ABDOMEN: Lung bases: There is mild patchy airspace opacity within the right lower lobe which may be related to subsegmental volume loss; however, developing pneumonia cannot be entirely excluded. Liver: There are areas of mild nonmasslike enhancement surrounding the gallbladder fossa which may be related to transient hepatic attenuation difference. This was not seen on the comparison examination in February 2017. Gallbladder: Normal appearing. Pancreas: Normal. Adrenal glands: Normal. Spleen: Normal. Kidneys: Atrophic but stable Retroperitoneum of the upper abdomen: No lymphadenopathy is evident. There is scattered vascular calc ifications of the abdominal pelvic vasculature. Pelvis: Small and large bowel: Normal Bladder: Normal. Rectal and perirectal soft tissues:There is a moderate amount of retained stool within the rectum and distal colon. Reproductive structures: Normal. Free fluid in pelvis: No free fluid is evident. Lymphadenopathy pelvis: No lymphadenopathy is evident. The hypodensities seen adjacent to the left co mmon femoral artery has decreased in size now measuring 1.7 cm were present measuring 3 cm and is consistent with a left iliopsoas bursitis. Osseous structures: No acute osseous abnormality. No destructive osteolytic or osteoblastic lesion i s identified. There is scattered degenerative and osteoarthritic changes. IMPRESSION: 1. Decrease in size of the left iliopsoas bursitis. 2. Patchy airspace opacity in the right lower lobe. Recommend correlation for pneumonia. 3. Likely transient hepatic attenuation difference within the liver adjacent to the gallbladder.
--- NOTE | 2018-08-09 12:42 | RAD ---
Chest AP view INDICATION: Fever and body aches COMPARISON: June 13, 2017 FINDINGS: Lungs:The right upper hemithorax pleural-parenchymal opacity is stable. Chronic fibrotic changes stab le. Cardiac silhouette pulmonary vasculature:Moderate cardiomegaly and multi lead AICD is unchanged. Pleural spaces:No pleural effusion or pneumothorax is demonstrated. Upper abdomen:No abnormality seen. Osseous structures: No acute osseous abnormality. There is scattered degenerative and osteoarthritic change present. Additional findings:None. IMPRESSION: No definite acute cardiopulmonary abnormality. Stable examination compared to a prior hermes ed June 13, 2017
[2018-08-09 15:03] LABS: INR-International Normal Ratio 3.4; Prothrombin Time 34.3 SEC (12.0-14.7)
[2018-08-09] MEDS ORDERED: Sodium Chloride 0.9% 100 ML ONE (15:30)
[2018-08-09 15:33] LABS: Lactic Acid 1.5 mmol/L (0.5-2.2)
[2018-08-09] MEDS ORDERED: Dextrose 50% Abboject 50 ML SYRINGE ONE (15:41)
[2018-08-09] MEDS ORDERED: Acetaminophen 325 MG TAB PO PRN (16:02)
[2018-08-09 16:19] VITALS: BMI 23.4
[2018-08-09] MEDS ORDERED: Vancomycin HCl 250 MG in Sodium Chloride 0.9% 100 ML IVPB SCH (17:15)
[2018-08-09] MEDS ORDERED: Vancomycin Sliding Scale 1 EACH FS ONE (17:15)
[2018-08-09] MEDS ORDERED: HOLD VANCOMYCIN FOR LEVEL >20 FS SCH (17:15)
[2018-08-09] MEDS ORDERED: Vancomycin HCl 500 MG in Sodium Chloride 0.9% 100 ML IVPB SCH (17:15)
[2018-08-09] MEDS ORDERED: Vancomycin HCl 750 MG in Sodium Chloride 0.9% 250 ML 250 ML IVPB SCH (17:15)
[2018-08-09] MEDS: Piperacillin/Tazobactam 3.375 GM in Sodium Chloride 0.9% 100 ML IVPB SCH ×2 (17:22→23:39)
--- NOTE | 2018-08-09 17:50 | HP ---
CHIEF COMPLAINT: Generalized weakness and fever. Also, he complained about chills and vomiting x2 and some pain in both groins. HISTORY OF PRESENT ILLNESS: Apparently, he saw some doctor for his pain in both groins and he is still supposed to see a specialist for that. It is not clear this family is Afghan speaking only and they do not really know exactly what kind of doctor he is supposed to see. He denies any chest pain or shortness of breath. He is a hemodialysis patient three times a week. Dr. Wall is his primary navigation teacher. He denies any diarrhea, constipation, or abdominal pain. He does not make urine. PAST SURGICAL HISTORY: 1. Right-sided AV fistula placement. 2. AICD. SOCIAL HISTORY: He denies any current cigarette smoking, alcohol intake, and use any illicit drugs, although he has quite significant history of alcohol intake and cigarette smoking in the past, but nothing recent. FAMILY HISTORY: The patient's parents had some cardiovascular issues. MEDICATIONS: 1. Albuterol HFA one inhalation every 6 hours. 2. Simvastatin 20 mg once a day. 3. Clopidogrel 75 mg once a day. 4. Lisinopril 2.5 mg once a day. 5. Metoprolol succinate 50 mg once a day. 6. Glipizide 10 mg twice a day. 7. Warfarin 2.5 mg once a day. 8. Isosorbide mononitrate 120 mg once a day. 9. Aspirin 81 mg. 10. Sevelamer 800 mg 3 times a day. REVIEW OF SYSTEMS: CONSTITUTIONAL: Positive for chills and fever. EYES: Negative for eye pain and eye discharge. ENT: Negative for nasal congestion and epistaxis. CARDIOVASCULAR: Negative for chest pain or palpitations. RESPIRATORY: Negative for shortness of breath and positive for some cough. GI: Positive for vomiting x2. Negative for abdominal pain or diarrhea. : The patient does not make any urine. He complains about bilateral groin pain. SKIN: Negative for rash or erythema. NEUROLOGIC: Negative for headaches and any focal deficits. HEMOLYMPHATIC: Negative for any easy bruising or clotting abnormalities. PHYSICAL EXAMINATION: VITAL SIGNS: The last vitals; blood pressure is 135/81, pulse is 95, respiratory rate is 24, and temperature is 103. Pain is 0. O2 saturation is 97% on room air. HEENT: His head is atraumatic and normocephalic. Eyes, PERRLA. Sclerae are nonicteric. Oral mucosa is moist. NECK: Supple. LUNGS: Breath sounds definitely diminished at both bases. Few crackles at both bases bilaterally. HEART: S1 and S2 normal. No S3. No S4. There is a systolic murmur mostly audible at the right sternal border, severity 2/6. ABDOMEN: Soft, nontender, and nondistended. EXTREMITIES: No clubbing, cyanosis, or edema. His pulses are somewhat diminished on both tibialis posterior and dorsalis pedis arteries similar bilaterally. NEUROLOGIC: He follows my commands. He moves his all 4 extremities. He has an AV fistula on the right side upper extremity. SKIN: No rash or erythema. LABORATORY DATA: EKG showed electronic pacemaker. Chest x-ray showed a lot of chronic changes with fibrosis in the right upper lung, but there was no any evidence of acute cardiopulmonary abnormality. This was personally reviewed by me and the CT of the abdomen and pelvis also personally reviewed by me showed some decrease in size of the left iliopsoas bursitis and patchy airspace opacity in the right lower lobe, which could be representing pneumonia. Also, there is some transient hepatic attenuation difference within the liver adjacent to the gallbladder. This finding is per radiologist. IMPRESSION: 1. Sepsis of unclear source. There is a right lower lobe airspace disease, which could be the beginning of pneumonia. He is a hemodialysis patient. The cultures drawn on his blood. Antibiotics were given. He started on vancomycin and Zosyn. We are going to continue both of them. 2. Pain in the right groin, which is felt to be a lymph node and pain in the left groin, which is based on the CT findings iliopsoas bursitis. 3. Hemodialysis three times a week. We will call Dr. Wall for recommendation and further management of his renal issue. 4. Diabetes mellitus type 2. We will have diabetic coverage with insulin and sliding scale mild before meals and at bedtime Accu-Cheks. 5. Macrocytic anemia with elevated MCV at 98.7. 6. Hypertension. 7. Hyperlipidemia. PLAN: As mentioned above, full admission. Condition is fair. Activity is bedrest and bathroom privileges. IV Hep-Lock. IV antibiotics vancomycin and Zosyn. Pharmacy to assist us with the dosing on vancomycin. I will notify Dr. Wall about the patient's need for hemodialysis, so he will be consulted. The blood cultures are drawn in the emergency room. We will give Tylenol p.r.n. for the fever. His labs showed white count of 17.1, hemoglobin 10.5, hematocrit 32.4, and platelet count is 267. Sodium of 134, potassium 4.7, chloride 91, CO2 of 24, BUN 55, creatinine 9.24, lactic acid 4.1, glucose 92, and magnesium 2.1. Normal liver function tests, globulin 3.8 and lipase 18. We will use SCD for DVT prophylaxis. Job ID: [id number]
[2018-08-09] MEDS: Famotidine/PF 20 mg/2ml Vial SLOW IVP SCH (20:12)
[2018-08-09] MEDS ORDERED: Vancomycin HCl 1 GM in Sodium Chloride 0.9% 250 ML 250 ML IVPB SCH (21:00)
--- NOTE | 2018-08-10 00:43 | CON ---
DATE OF CONSULTATION: 08/09/2018 CONSULTING PHYSICIAN: Trell Vuong MD REASON FOR CONSULT: End-stage renal disease evaluation. REASON FOR ADMISSION: Weakness. HISTORY OF PRESENT ILLNESS: A 72-year-old male with history of end-stage renal disease, hypertension, coronary artery disease, came to the hospital with above complaints. He gets dialysis Friday, Friday, Friday, due for dialysis tomorrow. Nephrology is consulted. The patient is feeling weak. No nausea or vomiting. No chest pain or palpitation. PAST MEDICAL HISTORY: Positive for end-stage renal disease, hyperlipidemia, hypertension. PAST SURGICAL HISTORY: Dialysis access placement, AICD placement and knee surgery. HOME MEDICATION: 1. Albuterol. 2. Simvastatin. 3. Clopidogrel. 4. Lisinopril. 5. Metoprolol. 6. Glipizide. 7. Warfarin. 8. Isosorbide mononitrate. 9. Aspirin. 10. Sevelamer. ALLERGIES: NO KNOWN DRUG ALLERGIES. SOCIAL HISTORY: No smoking, alcohol, or illicit drug abuse. FAMILY HISTORY: No history of kidney disease. REVIEW OF SYSTEMS: CONSTITUTIONAL: Negative for weight loss or gain, ability to conduct usual activities. SKIN: Negative for rash, itching. EYES: Negative for double vision, pain. ENT/MOUTH: Negative for nose bleeding, neck stiffness, pain, tenderness. CARDIOVASCULAR: Negative for palpitations, dyspnea on exertion, orthopnea. RESPIRATORY: Negative for shortness of breath, wheezing, cough, hemoptysis, fever or night sweats. GASTROINTESTINAL: Negative for poor appetite, abdominal pain, heartburn, nausea, vomiting, constipation, or diarrhea. GENITOURINARY: Negative for urgency, frequency, dysuria, nocturia. MUSCULOSKELETAL: Negative for pain, swelling. NEUROLOGIC/PSYCHIATRIC: Negative for anxiety, depression. ALLERGY/IMMUNOLOGIC: Negative for skin rash, bleeding tendency. PHYSICAL EXAMINATION: GENERAL: Reveals a well-built male, in no apparent distress. VITAL SIGNS: Reviewed. HEENT: Atraumatic, normocephalic. Oral mucosa is moist. NECK: Supple. CHEST: Clear. CARDIOVASCULAR: S1 and S2 heard. Rate and rhythm regular. RESPIRATORY: Clear to auscultation. GASTROINTESTINAL: Abdomen is soft. MUSCULOSKELETAL: 1+ edema. DERMATOLOGIC: No skin rash. NEUROLOGIC: Alert and awake. PSYCHIATRIC: Normal mood and affect. LABORATORY DATA: Hemoglobin is 10.5, potassium is 4.7, BUN is 55, and creatinine is 9.2. ASSESSMENT AND PLAN: 1. End-stage renal disease. We will continue dialysis Friday, Friday, Friday. 2. Edema. We will remove fluid if it is tolerated. 3. Anemia, mild. 4. Hypertension, blood pressure is stable. PLAN: To continue dialysis Friday, Friday, Friday. Thank you for the consult. We will follow the case. Job ID: [id number]
[2018-08-10] MEDS: Piperacillin/Tazobactam 3.375 GM in Sodium Chloride 0.9% 100 ML IVPB SCH ×3 (04:58→20:02)
[2018-08-10 07:27] LABS: Anion Gap 22 mmol/L (10-20); BUN (Urea Nitrogen) 70 mg/dL (8.4-25.7); Calc. Creatinine Clearance 6 mL/min (70-130); Calcium 8.9 mg/dL (7.8-10.44); Carbon Dioxide 24 mmol/L (23-31); Chloride 91 mmol/L (98-107); Estimated GFR-MDRD 5; Glucose 111 mg/dL (83-110); Potassium 5.9 mmol/L (3.5-5.1); Sodium 131 mmol/L (136-145)
[2018-08-10 07:30] LABS: #Lymphocytes 0.4 thou/uL (1.20-3.40); #Monocytes 0.5 thou/uL (0.11-0.59); #Neutrophils 9.4 thou/uL (1.40-6.50); %Basophils 0.1 % (0.0-1.0); %Eosinophils 0.5 % (0.0-10.0); %Lymphocytes 4.1 % (21.0-51.0); %Monocytes 4.7 % (0.0-10.0); %Neutrophils 90.7 % (42.0-75.0); Hemoglobin 9.9 g/dL (14.0-18.0); Mean Corpuscular HGB CONC 33.1 g/dL (32.0-36.0); Mean Corpuscular Hemoglobin 32.4 pg (27.0-31.0); Mean Corpuscular Volume 97.7 fL (78.0-98.0); Mean Platelet Volume 7.2 fL (7.4-10.4); Platelet Count 216 thou/uL (130-400); RBC Distribution Width 13.4 % (11.5-14.5); Red Blood Cell (RBC) Count 3.06 mill/uL (4.70-6.10); White Blood Cell (WBC) Count 10.4 thou/uL (4.8-10.8)
[2018-08-10 07:38] LABS: INR-International Normal Ratio 6.5
[2018-08-10] MEDS: Famotidine/PF 20 mg/2ml Vial SLOW IVP SCH ×2 (08:21→20:03)
[2018-08-10 08:36] LABS: Vancomycin, Random 16.6 ug/mL (See Comment)
--- NOTE | 2018-08-10 10:45 | PRG ---
DATE OF SERVICE: 08/10/2018 SUBJECTIVE: Patient was seen and examined at bedside and overnight events noted. Patient denies any shortness of breath or chest pain or palpitation. No history of nausea or vomiting or diarrhea or fever or chills or cramps. OBJECTIVE: GENERAL: This is a well-built male, in no apparent distress. VITAL SIGNS: Temperature 97.8. Heart rate 74. Respiratory rate 18. Blood pressure 152/78. HEENT: Atraumatic, normocephalic. Oral mucosa is moist NECK: Supple. CARDIOVASCULAR: S1, S2 heard. Rate and rhythm regular. RESPIRATORY: Clear to auscultation. GASTROINTESTINAL: Abdomen is soft. MUSCULOSKELETAL: No tenderness. No edema. DERMATOLOGIC: No skin rash. NEUROLOGIC: Alert and awake and oriented X3. No focal neurologic deficits. Moving all the extremities. PSYCHIATRIC: Mood and affect normal. LABORATORY DATA: Potassium 5.9, BUN is 70, creatinine is 10.2. ASSESSMENT AND PLAN: 1. End-stage renal disease. Continue dialysis Friday, Friday, and Friday. 2. Hyperkalemia. 3. Edema. 4. Anemia. Monitor hemoglobin. 5. Hypertension, stable. PLAN: To continue on dialysis on Friday, Friday, and Friday. Job ID: [id number]
[2018-08-10] MEDS ORDERED: Dextrose 5% in Water 1,000 ML IV PRN ×2 (12:02→12:32)
[2018-08-10] MEDS ORDERED: Dextrose 50% Abboject 50 ML SYRINGE IVP PRN (12:02)
[2018-08-10] MEDS ORDERED: HumaLOG 300 UNITS/3 ML VIAL SC PRN (12:02)
[2018-08-10] MEDS ORDERED: Acetaminophen/Codeine 30-300mg Tablet PO PRN (12:23)
--- NOTE | 2018-08-10 12:29 | PDOC.PN ---
- Subjective Encounter Start Date: 08/10/18 Encounter Start Time: 17:00 Subjective: Patient seen in dialysis, feeling a bit better. States he has to -: have a lot of fluid that needs to be removed with each dialysis though -: doesn't feel like he drinks too much. No SOB. No fever currently. - Objective Resuscitation Status - Order Detail: 08/09/18 14:17 Resuscitation Status Routine Resuscitation Status: FULL: Full Resuscitation MAR Reviewed: Yes Vital Signs & Weight: Vital Signs (12 hours) Temp Pulse Resp BP Pulse Ox 08/10/18 11:00 97.8 F 70 18 138/82 96 08/10/18 08:00 97.3 F L 73 18 152/78 H 95 08/10/18 04:23 97.8 F 75 18 155/77 H 97 Weight Weight 145 lb 6 oz I&O: 08/09/18 08/10/18 08/11/18 06:59 06:59 06:59 Intake Total 340 Output Total 0 Balance 340 Result Diagrams: 08/10/18 06:37 08/10/18 06:37 Additional Labs: Accuchecks 08/10/18 08/10/18 08/10/18 11:24 05:00 04:17 POC Glucose 110 88 45 L* 08/09/18 08/09/18 19:35 16:06 POC Glucose 88 99 Phys Exam - Physical Examination Constitutional: NAD HEENT: moist MMs Respiratory: no wheezing, no rales, no rhonchi Cardiovascular: RRR Gastrointestinal: soft, positive bowel sounds Neurological: non-focal Psychiatric: normal affect, A&O x 3 Dx/Plan (1) Sepsis Code(s): A41.9 - SEPSIS, UNSPECIFIED ORGANISM Status: Acute Comment: Temp 103 in ER, none since, leukocytosis of 17 resolved, blood cultures pending, on Zosyn and Vancomycin since 08/09/18, possible developing RLL pneumonia on CT (2) Iliopsoas bursitis of left hip Code(s): M70.72 - OTHER BURSITIS OF HIP, LEFT HIP Status: Acute Comment: improving on CT (3) ESRD (end stage renal disease) on dialysis Code(s): N18.6 - END STAGE RENAL DISEASE; Z99.2 - DEPENDENCE ON RENAL DIALYSIS Status: Chronic Comment: receiving dialysis (4) Diabetes mellitus type 2 in nonobese Code(s): E11.9 - TYPE 2 DIABETES MELLITUS WITHOUT COMPLICATIONS Status: Chronic Comment: holding glipizide due to some low bs - Plan cont current plan of care, continue antibiotics, PT/OT, DVT proph w/SCDs * . - Discharge Day Encounter end time: 17:15
[2018-08-10 14:07] LABS: HBSAg Index 0.37 S/CO (0-0.99); Hep B Surf Ag NonReactive S/CO (NonReactive)
[2018-08-10] MEDS: Sevelamer Carbonate 800 MG TAB PO SCH (18:49)
[2018-08-10] MEDS: Atorvastatin Calcium 10 MG TAB PO SCH (20:03)
[2018-08-11] MEDS: Piperacillin/Tazobactam 3.375 GM in Sodium Chloride 0.9% 100 ML IVPB SCH ×3 (00:42→11:53)
[2018-08-11 08:05] LABS: INR-International Normal Ratio 2.5; Prothrombin Time 26.7 SEC (12.0-14.7)
[2018-08-11 08:17] LABS: #Eosinphils 0.4 thou/uL (0.0-0.7); #Lymphocytes 0.9 thou/uL (1.20-3.40); #Monocytes 0.7 thou/uL (0.11-0.59); #Neutrophils 6.6 thou/uL (1.40-6.50); %Eosinophils 4.7 % (0.0-10.0); %Lymphocytes 10.4 % (21.0-51.0); %Monocytes 8.5 % (0.0-10.0); %Neutrophils 76.4 % (42.0-75.0); Hemoglobin 10.1 g/dL (14.0-18.0); Mean Corpuscular HGB CONC 33.5 g/dL (32.0-36.0); Mean Corpuscular Hemoglobin 32.8 pg (27.0-31.0); Mean Platelet Volume 7.6 fL (7.4-10.4); Platelet Count 206 thou/uL (130-400); RBC Distribution Width 13.4 % (11.5-14.5); Red Blood Cell (RBC) Count 3.08 mill/uL (4.70-6.10); White Blood Cell (WBC) Count 8.6 thou/uL (4.8-10.8)
[2018-08-11 08:18] LABS: Anion Gap 23 mmol/L (10-20); BUN (Urea Nitrogen) 39 mg/dL (8.4-25.7); Calc. Creatinine Clearance 8 mL/min (70-130); Calcium 8.9 mg/dL (7.8-10.44); Carbon Dioxide 23 mmol/L (23-31); Chloride 93 mmol/L (98-107); Estimated GFR-MDRD 7; Glucose 222 mg/dL (83-110); Sodium 134 mmol/L (136-145)
[2018-08-11] MEDS: Lisinopril 2.5 MG TAB PO SCH (08:29)
[2018-08-11] MEDS: Sevelamer Carbonate 800 MG TAB PO SCH ×3 (08:29→17:54)
--- NOTE | 2018-08-11 10:05 | PDOC.PN ---
- Subjective Encounter Start Date: 08/11/18 Encounter Start Time: 12:30 Subjective: Patient without complaints. No SOB. No chest pain. No more fever. - Objective Resuscitation Status - Order Detail: 08/09/18 14:17 Resuscitation Status Routine Resuscitation Status: FULL: Full Resuscitation MAR Reviewed: Yes Vital Signs & Weight: Vital Signs (12 hours) Temp Pulse Resp BP BP Pulse Ox Pulse Ox 08/11/18 09:19 94 L 08/11/18 08:29 79 153/73 H 08/11/18 08:00 98.3 F 79 18 157/73 H 96 08/11/18 04:00 98.3 F 76 14 154/81 H 97 08/10/18 23:25 99.0 F 82 18 146/76 H 95 Weight Weight 145 lb 6 oz I&O: 08/10/18 08/11/18 08/12/18 06:59 06:59 06:59 Intake Total 340 1530 Output Total 0 20 Balance 340 1510 Result Diagrams: 08/11/18 07:43 08/11/18 07:43 Additional Labs: Accuchecks 08/11/18 08/11/18 08/10/18 05:19 04:06 21:53 POC Glucose 175 H 56 L* 158 H 08/10/18 08/10/18 20:01 11:24 POC Glucose 63 L 110 Phys Exam - Physical Examination Constitutional: NAD HEENT: moist MMs Respiratory: no wheezing, no rales, no rhonchi Cardiovascular: RRR Gastrointestinal: soft, positive bowel sounds Neurological: non-focal, moves all 4 limbs Psychiatric: normal affect, A&O x 3 Dx/Plan (1) CAP (community acquired pneumonia) Code(s): J18.9 - PNEUMONIA, UNSPECIFIED ORGANISM Status: Acute Qualifiers: Laterality: right Lung location: lower lobe of lung Qualified Code(s): J18.1 - Lobar pneumonia, unspecified organism Comment: Blood cultures negative, sepsis resolved, will transition to oral antibiotics. Possible d/c tomorrow. (2) Sepsis Code(s): A41.9 - SEPSIS, UNSPECIFIED ORGANISM Status: Resolved Comment: Temp 103 in ER, none since, leukocytosis of 17 resolved, blood cultures negative , on Zosyn and Vancomycin since 08/09/18 (3) Iliopsoas bursitis of left hip Code(s): M70.72 - OTHER BURSITIS OF HIP, LEFT HIP Status: Acute Comment: improving on CT (4) ESRD (end stage renal disease) on dialysis Code(s): N18.6 - END STAGE RENAL DISEASE; Z99.2 - DEPENDENCE ON RENAL DIALYSIS Status: Chronic Comment: receiving dialysis (5) Diabetes mellitus type 2 in nonobese Code(s): E11.9 - TYPE 2 DIABETES MELLITUS WITHOUT COMPLICATIONS Status: Chronic Comment: holding glipizide due to some low bs - Plan cont current plan of care, continue antibiotics, PT/OT, DVT proph w/SCDs blood cultures neg -: no more fever -: change to oral antibiotics * . - Discharge Day Encounter end time: 12:40
--- NOTE | 2018-08-11 11:30 | PQF ---
CLINICAL DOCUMENTATION IMPROVEMENT CLARIFICATION FORM: ICD-10 Updated PLEASE DO AN ADDENDUM TO THE PROGRESS NOTE WITH ANY DOCUMENTATION UPDATES OR ADDITIONS AND CARRY THROUGH TO DC SUMMARY. THANK YOU. DATE: 08/11/18 ATTN: DR. BAEZA Please exercise your independent, professional judgment in responding to the clarification form. Clinical indicators are provided on the bottom of this form for your review Please check appropriate box(s) to clarify if the following diagnosis has been ruled in or ruled out: "PNEUMONIA" [ X ] Ruled in diagnosis [ X ] Continue to treat [ ] Resolved [ ] Ruled out diagnosis [ ] Other diagnosis [ ] Unable to determine In addition, please specify: Present on Admission (POA): [ X ] Yes [ ] No [ ] Unable to determine For continuity of documentation, please document condition throughout progress notes and discharge summary. Thank You. CLINICAL INDICATORS - SIGNS / SYMPTOMS / LABS ER NOTE: "PNEUMONIA" PROGRESS NOTE: "THERE IS A RIGHT LOWER LOBE AIRSPACE DISEASE, WHICH COULD BE THE BEGINNING OF PNEUMONIA." TEMP 102.4 PULSE 108 RR 26 RISKS: FORMER SMOKER FEVER AND BODY ACHES TREATMENT: IV VANCOMYCIN (ER-PRESENT) IV FLUIDS (ER) IV ZOSYN (ER-PRESENT) CHEST XRAY [employer] Win[employer] (This form is maintained as a part of the permanent medical record) 2014 [employer]. All Rights Reserved THERON [email or web address] Office: [phone] [email or web address]
--- NOTE | 2018-08-11 14:31 | PRG ---
DATE OF SERVICE: 08/11/2018 SUBJECTIVE: Patient was seen and examined at bedside and overnight events noted. Patient denies any shortness of breath or chest pain or palpitation. No history of nausea or vomiting or diarrhea or fever or chills or cramps. OBJECTIVE: GENERAL: This is a well-built male, in no apparent distress. VITAL SIGNS: Temperature 97.6. Heart rate 74. Respiratory rate 18. Blood pressure 154/88. HEENT: Atraumatic, normocephalic. Oral mucosa is moist NECK: Supple. CARDIOVASCULAR: S1, S2 heard. Rate and rhythm regular. RESPIRATORY: Clear to auscultation. GASTROINTESTINAL: Abdomen is soft. MUSCULOSKELETAL: No tenderness. No edema. DERMATOLOGIC: No skin rash. NEUROLOGIC: Alert and awake and oriented X3. No focal neurologic deficits. Moving all the extremities. PSYCHIATRIC: Mood and affect normal. LABORATORY DATA: Potassium is 5.0, BUN is 39, and creatinine is 7.1. ASSESSMENT AND PLAN: 1. End-stage renal disease, continue dialysis. 2. Hyperkalemia, better. Limit potassium. 3. Edema. 4. Anemia. 5. Hypertension, stable. Continue dialysis Friday, Friday, and Friday as tolerated. Job ID: [id number]
[2018-08-11] MEDS: Amoxicillin/Potassium Clav 875 MG TAB PO SCH (20:01)
[2018-08-11] MEDS: Atorvastatin Calcium 10 MG TAB PO SCH (20:02)
[2018-08-11] MEDS ORDERED: Famotidine/PF 20 mg/2ml Vial SLOW IVP SCH (21:00)
[2018-08-12] MEDS: Amoxicillin/Potassium Clav 875 MG TAB PO SCH (07:57)
[2018-08-12] MEDS: Sevelamer Carbonate 800 MG TAB PO SCH ×2 (07:57→10:01)
[2018-08-12] MEDS: Lisinopril 2.5 MG TAB PO SCH (08:00)
[2018-08-12 08:01] VITALS: BP 167/82
[2018-08-12 08:03] VITALS: TEMP 98.4
[2018-08-12 08:07] LABS: INR-International Normal Ratio 1.6; Prothrombin Time 18.7 SEC (12.0-14.7)
--- NOTE | 2018-08-12 11:42 | PDOC.PN ---
- Subjective Encounter Start Date: 08/12/18 Encounter Start Time: 13:00 Subjective: Patient feeling well. No fever. No cough. No N/V with augmentin. - Objective Resuscitation Status - Order Detail: 08/09/18 14:17 Resuscitation Status Routine Resuscitation Status: FULL: Full Resuscitation MAR Reviewed: Yes Vital Signs & Weight: Vital Signs (12 hours) Temp Pulse Resp BP BP Pulse Ox 08/12/18 08:01 98.4 F 18 96 08/12/18 08:00 78 167/82 H 08/12/18 04:00 98.1 F 73 18 153/71 H 98 08/12/18 00:24 98.4 F 73 20 134/71 100 Weight Weight 145 lb 6 oz I&O: 08/11/18 08/12/18 08/13/18 06:59 06:59 06:59 Intake Total 1530 0 Output Total 20 10 Balance 1510 2059 Result Diagrams: 08/11/18 07:43 08/11/18 07:43 Additional Labs: Accuchecks 08/12/18 08/11/18 08/11/18 03:52 19:17 16:41 POC Glucose 153 H 232 H 184 H 08/11/18 11:20 POC Glucose 260 H Phys Exam - Physical Examination Constitutional: NAD HEENT: moist MMs Respiratory: no wheezing, no rales, no rhonchi, clear to auscultation bilateral Cardiovascular: RRR, no significant murmur Gastrointestinal: soft, positive bowel sounds Neurological: non-focal Psychiatric: normal affect, A&O x 3 Dx/Plan (1) CAP (community acquired pneumonia) Code(s): J18.9 - PNEUMONIA, UNSPECIFIED ORGANISM Status: Acute Qualifiers: Laterality: right Lung location: lower lobe of lung Qualified Code(s): J18.1 - Lobar pneumonia, unspecified organism Comment: Blood cultures negative, sepsis resolved, transitioned to oral antibiotics. (2) Sepsis Code(s): A41.9 - SEPSIS, UNSPECIFIED ORGANISM Status: Resolved Comment: Temp 103 in ER, none since, leukocytosis of 17 resolved, blood cultures negative , on Zosyn and Vancomycin since 08/09/18, switched to oral Augmentin 08/11 (3) Iliopsoas bursitis of left hip Code(s): M70.72 - OTHER BURSITIS OF HIP, LEFT HIP Status: Acute Comment: improving on CT (4) ESRD (end stage renal disease) on dialysis Code(s): N18.6 - END STAGE RENAL DISEASE; Z99.2 - DEPENDENCE ON RENAL DIALYSIS Status: Chronic Comment: receiving dialysis (5) Diabetes mellitus type 2 in nonobese Code(s): E11.9 - TYPE 2 DIABETES MELLITUS WITHOUT COMPLICATIONS Status: Chronic Comment: holding glipizide due to some low bs - Plan cont current plan of care, continue antibiotics d/c home today -: restart coumadin and recheck level next week since on abx * . - Discharge Day Encounter end time: 13:30
--- NOTE | 2018-08-12 15:34 | PRG ---
DATE OF SERVICE: 08/12/2018 SUBJECTIVE: Patient was seen and examined at bedside and overnight events noted. Patient denies any shortness of breath or chest pain or palpitation. No history of nausea or vomiting or diarrhea or fever or chills or cramps. OBJECTIVE: GENERAL: This is a well-built male, in no acute distress. VITAL SIGNS: Temperature 98.4, heart rate 70, respiratory rate 18. Blood pressure 153/71. HEENT: Atraumatic, normocephalic. Oral mucosa is moist NECK: Supple. CARDIOVASCULAR: S1, S2 heard. Rate and rhythm regular. RESPIRATORY: Clear to auscultation. GASTROINTESTINAL: Abdomen is soft. MUSCULOSKELETAL: No tenderness. No edema. DERMATOLOGIC: No skin rash. NEUROLOGIC: Alert and awake and oriented X3. No focal neurologic deficits. Moving all the extremities. PSYCHIATRIC: Mood and affect normal. LABORATORY DATA: No labs done today. ASSESSMENT AND PLAN: 1. End-stage renal disease, continue hemodialysis Friday, Friday, and Friday. 2. Hyperkalemia, better. 3. Edema. 4. Anemia. 5. Hypertension. Continue dialysis Friday, Friday, and Friday. Job ID: [id number]
--- NOTE | 2018-08-13 06:44 | DIS ---
DATE OF ADMISSION: 08/09/2018 DATE OF DISCHARGE: 08/12/2018 PRIMARY CARE PHYSICIAN: SCOUT Gomes PRIMARY CONTRACT TECHNICIAN: Aayush Schofield MD REASON FOR ADMISSION: Sepsis. DIAGNOSES AT DISCHARGE: 1. Community-acquired pneumonia. 2. Sepsis, resolved. 3. Iliopsoas bursitis of the left hip, subacute. 4. End-stage renal disease, on dialysis. 5. Diabetes mellitus, type 2. PROCEDURES: CT scan of the abdomen and pelvis with contrast showing a decrease in the size of left iliopsoas bursitis, patchy airspace opacity in the right lower lobe, possible pneumonia. CONSULTATIONS: Nephrology, Dr. Schofield. SUMMARY OF HOSPITAL COURSE: This is a 72-year-old male with end-stage renal disease, on dialysis. He has been seeing his doctor for some pain in both groins, also see a specialist for it and had, had a CT scan previously showing an iliopsoas bursitis. The patient came in with generalized weakness and fever, vomiting a couple of times. His temperature got up to 103 in the emergency room. He was diagnosed with sepsis, started on broad-spectrum antibiotics. CT scan did show the right lower lobe pneumonia developing along with improvement in his iliopsoas bursitis. The patient was admitted to the hospital on broad-spectrum and IV antibiotics. He had resolution of his leukocytosis. He had declined and then resolution of his fevers and his body pain and groin pain improved. The patient was eventually transitioned over to oral antibiotics for his pneumonia, was doing well the day of discharge and being discharged home. The patient did have an elevated INR on his initial hospitalization. It had gotten up to as high as 6, but that resolved quickly down to normal. Uncertain, if this was in his previous lab, which resolved with holding his Coumadin. However, he is now actually little subtherapeutic, so we are restarting his Coumadin and he is not in typical levels and he is going to get that rechecked in 1 week. DISCHARGE MANAGEMENT: Discharged home. ACTIVITY: As tolerated. DIET: Diabetic renal diet. FOLLOWUP: Follow up with Dr. Schofield for continued dialysis and with Evelina Shah in 7 days. DISCHARGE MEDICATIONS: 1. Augmentin 875 mg twice a day for 5 more days, 10 tabs dispensed. 2. Resume Tylenol with Codeine as needed. 3. Glipizide 10 mg twice a day. 4. Isosorbide mononitrate 120 mg daily. 5. Lisinopril 2.5 mg daily. 6. Metoprolol XL 25 mg daily. 7. Renvela 3200 mg 3 times a day. 8. Simvastatin 20 mg at night. 9. Warfarin 2.5 mg one tablet on Friday, Friday, and Friday and two tabs on Friday, , Friday, and Friday. Job ID: [id number]
== END 2018-08-12 15:48 | disposition home or self-care (01) | DRG 871 ==
LOC: ERS 10:52 → T4-B 13:55
PROVIDERS: ADMIT Internal Medicine; ATTEND Internal Medicine
DX: A41.9 Sepsis, unspecified organism (principal); J18.9 Pneumonia, unspecified organism; N18.6 End stage renal disease; I12.0 Hypertensive chronic kidney disease with stage 5 chronic kidney disease or end stage renal disease; D63.1 Anemia in chronic kidney disease; I25.10 Atherosclerotic heart disease of native coronary artery without angina pectoris; E78.5 Hyperlipidemia, unspecified; E87.5 Hyperkalemia; M70.72 Other bursitis of hip, left hip; E11.22 Type 2 diabetes mellitus with diabetic chronic kidney disease; Z95.810 Presence of automatic (implantable) cardiac defibrillator; Z87.891 Personal history of nicotine dependence; Z79.899 Other long term (current) drug therapy; Z79.82 Long term (current) use of aspirin; Z79.84 Long term (current) use of oral hypoglycemic drugs; Z79.01 Long term (current) use of anticoagulants; Z99.2 Dependence on renal dialysis
CPT/HCPCS: 36415; 36416; 71045; 74177; 80048; 80053; 80202; 82550; 83605; 83690; 83735; 85025; 85610; 86850; 86900; 86901; 87040; 87340; 87804; 93005; 94760; 96361; 96365; J2543; J3370; J3490; Q9967; S0028

== ENCOUNTER 2018-10-23 19:15 | Emergency (ER) | payer MEDICARE, MEDICAID ==
[2018-10-23 21:02] LABS: #Eosinphils 0.2 thou/uL (0.0-0.7); #Lymphocytes 0.7 thou/uL (1.20-3.40); #Monocytes 0.7 thou/uL (0.11-0.59); #Neutrophils 5.2 thou/uL (1.40-6.50); %Basophils 0.3 % (0.0-1.0); %Eosinophils 3.6 % (0.0-10.0); %Lymphocytes 10.5 % (21.0-51.0); %Monocytes 9.5 % (0.0-10.0); %Neutrophils 76.1 % (42.0-75.0); Hemoglobin 11.4 g/dL (14.0-18.0); Mean Corpuscular HGB CONC 32.5 g/dL (32.0-36.0); Mean Corpuscular Hemoglobin 31.8 pg (27.0-31.0); Mean Corpuscular Volume 97.7 fL (78.0-98.0); Mean Platelet Volume 7.3 fL (7.4-10.4); Platelet Count 225 thou/uL (130-400); Red Blood Cell (RBC) Count 3.58 mill/uL (4.70-6.10); White Blood Cell (WBC) Count 6.9 thou/uL (4.8-10.8)
--- NOTE | 2018-10-23 21:14 | RAD ---
Chest one view HISTORY: Chest pain. Fever. COMPARISON: 08/09/2018. FINDINGS: Cardiac silhouette is magnified and enlarged. Pulmonary vasculature upper limits of normal rightward shift of mediastinum with opacification of the right apex is similar in appearance to the prior study. Old right lateral rib injuries. Ill-defined parenchymal opacity throughout the lungs has improved since the prior study. No lobar consolidation or evidence of pneumothorax. Multi lead left subclavian cardiac electronic device remains in place. IMPRESSION: Chronic-type findings are stable. No active cardiopulmonary abnormalities are reliably de monstrated.
[2018-10-23 21:24] LABS: ALT (SGPT) 12 U/L (8-55); AST (SGOT) 13 U/L (5-34); Albumin 3.8 g/dL (3.4-4.8); Alkaline Phosphatase 175 U/L (40-150); Anion Gap 15 mmol/L (10-20); BUN (Urea Nitrogen) 24 mg/dL (8.4-25.7); Bilirubin, Total 0.9 mg/dL (0.2-1.2); Calc. Creatinine Clearance 0 mL/min (70-130); Calcium 9.3 mg/dL (7.8-10.44); Carbon Dioxide 31 mmol/L (23-31); Chloride 90 mmol/L (98-107); Estimated GFR-MDRD 9; Glucose 202 mg/dL (83-110); Potassium 4.4 mmol/L (3.5-5.1); Protein, Total 7.8 g/dL (5.8-8.1); Sodium 132 mmol/L (136-145)
== END 2018-10-23 22:09 | disposition home or self-care (01) ==
LOC: ERS 19:15
DX: R50.9 Fever, unspecified (principal); I25.2 Old myocardial infarction; E78.5 Hyperlipidemia, unspecified; E11.22 Type 2 diabetes mellitus with diabetic chronic kidney disease; I12.0 Hypertensive chronic kidney disease with stage 5 chronic kidney disease or end stage renal disease; N18.6 End stage renal disease; Z79.01 Long term (current) use of anticoagulants; Z79.899 Other long term (current) drug therapy; Z79.82 Long term (current) use of aspirin; Z79.84 Long term (current) use of oral hypoglycemic drugs; Z99.2 Dependence on renal dialysis
CPT/HCPCS: 71045; 80053; 83605; 85025; 87040

== ENCOUNTER 2018-12-18 11:43 | Emergency (ER) | payer MEDICARE, MEDICAID ==
[2018-12-18 12:42] LABS: #Eosinphils 1.1 thou/uL (0.0-0.7); #Lymphocytes 0.8 thou/uL (1.20-3.40); #Monocytes 0.5 thou/uL (0.11-0.59); #Neutrophils 5.8 thou/uL (1.40-6.50); %Basophils 0.3 % (0.0-1.0); %Eosinophils 12.8 % (0.0-10.0); %Lymphocytes 10.2 % (21.0-51.0); %Monocytes 5.9 % (0.0-10.0); %Neutrophils 70.8 % (42.0-75.0); Hemoglobin 9.7 g/dL (14.0-18.0); Mean Corpuscular Hemoglobin 31.8 pg (27.0-31.0); Mean Corpuscular Volume 96.4 fL (78.0-98.0); Mean Platelet Volume 7.1 fL (7.4-10.4); Platelet Count 212 thou/uL (130-400); RBC Distribution Width 13.1 % (11.5-14.5); Red Blood Cell (RBC) Count 3.06 mill/uL (4.70-6.10); White Blood Cell (WBC) Count 8.2 thou/uL (4.8-10.8)
--- NOTE | 2018-12-18 13:03 | CT ---
CT BRAIN WITHOUT CONTRAST: Date: 12/18/18 HISTORY: Dizziness. FINDINGS: There are changes of cortical atrophy and chronic small vessel ischemic disease. The ventricular size is appropriate and the basilar cisterns are patent. No evidence of acute infarct, hemorrhage, midline shift, or abnormal extra-axial fluid collections ar e seen. The bony calvarium is intact. The visualized paranasal sinuses and mastoid air cells are well aerated. IMPRESSION: No CT evidence of acute intracranial process. POS: TPC
[2018-12-18 13:10] LABS: ALT (SGPT) Less than 7 U/L (8-55); AST (SGOT) 11 U/L (5-34); Albumin 3.9 g/dL (3.4-4.8); Alkaline Phosphatase 119 U/L (40-150); Anion Gap 12 mmol/L (10-20); BUN (Urea Nitrogen) 18 mg/dL (8.4-25.7); Bilirubin, Total 0.7 mg/dL (0.2-1.2); Calc. Creatinine Clearance 0 mL/min (70-130); Calcium 8.4 mg/dL (7.8-10.44); Carbon Dioxide 36 mmol/L (23-31); Chloride 90 mmol/L (98-107); Estimated GFR-MDRD 13; Globulin 4.2 g/dL (2.4-3.5); Glucose 212 mg/dL (83-110); Potassium 3.4 mmol/L (3.5-5.1); Protein, Total 8.1 g/dL (5.8-8.1); Sodium 135 mmol/L (136-145)
== END 2018-12-18 15:55 | disposition home or self-care (01) ==
LOC: ERS 11:43
DX: D64.9 Anemia, unspecified (principal); I25.2 Old myocardial infarction; E78.5 Hyperlipidemia, unspecified; E11.22 Type 2 diabetes mellitus with diabetic chronic kidney disease; I12.0 Hypertensive chronic kidney disease with stage 5 chronic kidney disease or end stage renal disease; N18.6 End stage renal disease; Z79.899 Other long term (current) drug therapy; Z79.01 Long term (current) use of anticoagulants; Z79.82 Long term (current) use of aspirin
CPT/HCPCS: 36415; 70450; 80053; 84484; 85025; 86850; 86900; 86901; 93005

== ENCOUNTER 2019-02-19 12:38 | Inpatient (IN) | payer MEDICARE, MEDICAID ==
--- NOTE | 2019-02-19 13:38 | CT ---
Exam: Head CT without contrast HISTORY: Pain. Trauma. COMPARISON: 12/18/2018 FINDINGS: Hemorrhage: No intraparenchymal hemorrhage or extra-axial hematoma. Brain parenchyma: Cortical neil-white matter differentiation is preserved. No mass effect or midline shift. Basilar cisterns are patent.White matter hypodensities due to chronic small vessel ischemic change Ventricular system: Ventricles and sulci are patent and symmetric. Calvarium: Intact. Sinuses and mastoid air cells: Mild mucosal thickening of the ethmoid air cells. IMPRESSION: No intracranial posttraumatic sequelae
--- NOTE | 2019-02-19 13:43 | RAD ---
RADIOGRAPH CHEST 1 VIEW: DATE: 02/19/2019 TIME: 2:31 PM HISTORY: 73-year-old male status post chest trauma from fall. Syncope. Concern for aspiration. COMPARISON: 10/23/2018 FINDINGS: Again noted is the dense chronic opacification of right apex consistent with severe scar tissue, with traction severe deviation of the trachea to the right and superior retraction right hilum. Left subclavian multilead AICD. Lung volumes are lower on the current study compared to previous making co mparison somewhat difficult. Prominent interstitial markings heterogeneously distributed, mostly in the right lateral mid and right basilar lung zones. New finding of partial silhouetting of right cathy diaphragm. Cardiomegaly. Questionable new finding of irregularly-shaped nodular noncalcified pulmonary densities, especially left upper lung zone. No pneumothorax. IMPRESSION: 1. Severe right apical pulmonary-pleural scarring causing traction and deviation to the trachea and r ight hilum. 2. Diffuse bilateral interstitial changes, at least some of which is chronic. 3. Possible acute infiltrate at right lower lobe. 4. Questionable new nodular densities left upper lobe. 5. Cardiomegaly. 6. Automatic implantable cardioverter-defibrillator.
--- NOTE | 2019-02-19 14:35 | RAD ---
Exam:4 views right knee HISTORY: Pain. Fall. COMPARISON: None FINDINGS: Joint effusion. Soft tissue swelling. Extensive vascular calcifications. Extensive irregularity involving the proximal tibia. Findings are presumed be due to remote insult. P ossibility of acute fracture cannot be excluded. Given the presence of joint effusion, further evaluation with CT is recommended. Bony remodeling from remote proximal fibular fracture is noted. IMPRESSION: 1. Soft tissue swelling 2. Joint effusion. 3. Presumed chronic changes in the proximal tibia and fibula. However, given the presence of joint ef fusion CT is recommended.
[2019-02-19 15:07] LABS: #Eosinphils 0.6 thou/uL (0.0-0.7); #Lymphocytes 0.7 thou/uL (1.20-3.40); #Monocytes 0.5 thou/uL (0.11-0.59); #Neutrophils 4.9 thou/uL (1.40-6.50); %Basophils 0.1 % (0.0-1.0); %Eosinophils 8.5 % (0.0-10.0); %Monocytes 6.8 % (0.0-10.0); %Neutrophils 74.6 % (42.0-75.0); Hemoglobin 8.3 g/dL (14.0-18.0); Mean Corpuscular HGB CONC 32.6 g/dL (32.0-36.0); Mean Corpuscular Hemoglobin 31.8 pg (27.0-31.0); Mean Corpuscular Volume 97.4 fL (78.0-98.0); Mean Platelet Volume 7.2 fL (7.4-10.4); Platelet Count 176 thou/uL (130-400); Red Blood Cell (RBC) Count 2.62 mill/uL (4.70-6.10); White Blood Cell (WBC) Count 6.6 thou/uL (4.8-10.8)
[2019-02-19 15:27] LABS: ALT (SGPT) 8 U/L (8-55); AST (SGOT) 11 U/L (5-34); Albumin 3.4 g/dL (3.4-4.8); Alkaline Phosphatase 117 U/L (40-110); BUN (Urea Nitrogen) 13 mg/dL (8.4-25.7); Bilirubin, Total 0.6 mg/dL (0.2-1.2); Calc. Creatinine Clearance 0 mL/min (70-130); Calcium 8.5 mg/dL (7.8-10.44); Estimated GFR-MDRD 15; Globulin 3.7 g/dL (2.4-3.5); Glucose 201 mg/dL (83-110); Protein, Total 7.1 g/dL (5.8-8.1)
[2019-02-19 15:36] LABS: Anion Gap 12 mmol/L (10-20); Carbon Dioxide 37 mmol/L (23-31); Chloride 90 mmol/L (98-107); Potassium 3.8 mmol/L (3.5-5.1); Sodium 135 mmol/L (136-145)
[2019-02-19] MEDS ORDERED: HYDROcodone/Acetaminophen 10/325 mg Tablet ONE (15:57)
--- NOTE | 2019-02-19 16:38 | CT ---
CT OF THE RIGHT KNEE WITHOUT CONTRAST: 02/19/19 INDICATION: Concern for right knee fracture. COMPARISON: Right knee radiograph dated 02/19/19. FINDINGS: There is healed posttraumatic and postsurgical change involving the proximal tibia and fibula. There is mild osteoarthrosis of the right knee. There is moderate joint capsule distention. There is a riaz oscar within the deep substance of the medial vastus intermedius and vastus medius obliquus measuring 4 cm on image 25, series 2. No acute fracture is grossly evident. There is diffuse osteopenia. There is severe vascular calcifications of the soft tissues. IMPRESSION: 1. Findings suspicious for a deep intramuscular hematoma of the distal medial right thigh in the region of the vastus intermedius and vastus medius obliquus musculature. There is moderate to promin ent right sided joint effusion. 2. There is healed fracture deformity and postoperative change of the proximal tibia and fibula. 3. Mild osteoarthrosis of the right knee. 4. Would recommend clinical and imaging follow-up of the deep muscular hematoma involving the di stal medial right thigh. Recommend MRI follow-up in 6 to 8 weeks may be helpful to document resolutio n. Alternatively, an ultrasound follow-up may be helpful. POS: OFF
[2019-02-19] MEDS ORDERED: Sodium Chloride 0.9% 100 ML ONE (16:55)
[2019-02-19] MEDS ORDERED: Piperacillin/Tazobactam 2.25 GM VIAL ONE (16:55)
[2019-02-19 17:22] LABS: PTT 51.8 SEC (22.9-36.1); Prothrombin Time 47.9 SEC (12.0-14.7)
[2019-02-19 17:27] LABS: INR-International Normal Ratio 5.3
[2019-02-19] MEDS ORDERED: Dextrose 50% Abboject 50 ML SYRINGE SLOW IVP PRN (18:33)
[2019-02-19] MEDS ORDERED: HumaLOG 300 UNITS/3 ML VIAL SC PRN ×2 (18:33)
[2019-02-19] MEDS ORDERED: Dextrose 5% in Water 1,000 ML IV PRN (18:33)
[2019-02-19] MEDS ORDERED: Acetaminophen 650 MG Suppository PR PRN (18:37)
[2019-02-19] MEDS ORDERED: Acetaminophen 325 MG TAB PO PRN (18:37)
[2019-02-19] MEDS ORDERED: Ondansetron PF 4 MG/2 ML Vial IVP PRN (18:37)
--- NOTE | 2019-02-19 18:46 | CT ---
CT Chest WO Con History: Shortness of breath Comparison: Radiograph same day Findings: High-grade scarring both upper lobes with numerous confluent partially calcified nodules. H igh-grade pleural thickening right upper lobe. Numerous calcified pleural plaques. Bronchiectasis in the right lower lobe with early honeycombing changes No numerous scattered proximal parenchymal nodules. The lung bases appears similar to the 08/09/[address] exam. The upper lobe nodules are similar to 2008 CT exam Heart size is enlarged. Multiple old right rib fractures. Old left 11th rib fracture. No acute rib fr acture. No thoracic spine compression deformity. 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
--- NOTE | 2019-02-19 20:50 | HP ---
PRIMARY CARE PHYSICIAN: Dr. Caldwell. CHIEF COMPLAINT: Right knee pain. HISTORY OF PRESENT ILLNESS: Mr. Zeng is a 73-year-old gentleman who presents to the emergency department with complaints of severe pain and swelling in the right knee. The patient states he had a fall yesterday. Apparently, he was drinking water, started coughing and had a sudden syncopal episode. According to his , he recovered after 3 minutes. His states that every time he drinks water, he often chokes and coughs. He is unable to pinpoint just how long this has been going on. When he fell, he injured his right knee, but is unsure how. He has had swelling and pain to that knee along with some warmth and has been unable to bear weight. The patient denies experiencing any preceding chest pain, shortness of breath, lightheadedness or dizziness prior to falling. Denies having any headaches since. No blurred vision or speech changes. Denies any extremity numbness or tingling. Has not had any gait disturbances. No speech disturbances. He reports having a cough for the last couple of weeks that has been productive for sputum. The patient states the sputum ranges from being yellow in color and at times brown in color; unable to state how it has been in the last couple of days. Denies having any fevers at home. No hemoptysis. In the emergency department, he did not undergo any EKG. He did have laboratory studies done which were notable for a white count of 6.6, hemoglobin of 8.3, platelets of 176. Sodium was 135, potassium 3.8, anion gap 12, BUN 13, creatinine 3.96, GFR 15. Glucose 201, albumin 3.4. LFTs unremarkable. Lactic acid was normal at 1.6. He was noted to have a supratherapeutic INR of 5.3. He is on warfarin. A CT of the head was done and showed no acute intracranial abnormalities. He underwent an x-ray of his right knee which showed soft tissue swelling and joint effusion. There were presumed chronic changes involving the proximal tibia and fibula. CT was recommended and showed a deep intramuscular hematoma of the distal medial right thigh in the region of the vastus intermedius and vastus medialis obliquus musculature. There was [id number] right-sided effusion. A chest x-ray was done showing severe right apical pulmonary pleural scarring causing traction and deviation to the trachea and right hilum with diffuse bilateral interstitial changes and possibly an acute infiltrate at the right lower lobe with questionable new nodular densities involving the left upper lobe as well as cardiomegaly. The AICD was noted to be in place. The patient apparently did see Dr. Rodriguez in the last few days and was told that everything was "normal." He is unsure when he last underwent an echocardiogram, but states it was recent. He does have end-stage renal disease and on hemodialysis. The patient was started on antibiotics with Levaquin and Zosyn due to possible pneumonia noted on the chest x-ray. He was given [place] for pain in his knee. REVIEW OF SYSTEMS: The patient denies having any difficulty breathing at first, but then did mention that he becomes winded with exertion. He denies having any pulmonary problems, but then his showed me an inhaler that was prescribed by Dr. Caldwell. He is unsure when he began to use inhalers. The patient also seems to be unsure of underlying heart disease or heart failure. There is an echo on file from 2016, which showed moderate LV dysfunction with an EF of 40% to 45%, grade 1 diastolic dysfunction, moderate mitral regurgitation, and trace tricuspid regurgitation. PAST MEDICAL HISTORY: 1. Coronary artery disease. 2. Previous [place], treated with 3 to 4 stents. 3. Diabetes. 4. Hyperlipidemia. 5. Hypertension. 6. End-stage renal disease, on dialysis Friday, Friday, and Friday. 7. AICD due to cardiomyopathy. PAST SURGICAL HISTORY: 1. Fistula to the left arm. 2. Right knee surgery. 3. AICD placement. SOCIAL HISTORY: The patient lives with his family. He is normally able to mobilize independently. Denies any alcohol consumption or illicit drug use. ALLERGIES: NO KNOWN DRUG ALLERGIES. CURRENT MEDICATIONS: 1. Simvastatin. 2. Lisinopril. 3. Metoprolol succinate. 4. Warfarin. 5. Aspirin. 6. Sevelamer carbonate. 7. Tamsulosin. 8. Flovent. 9. Nitroglycerin transdermal. PHYSICAL EXAMINATION: GENERAL: The patient appears well developed, well nourished, is in no acute distress. VITAL SIGNS: Temperature 98.3, pulse 78, blood pressure 144/82, respirations 19, O2 saturation 97% on room air. HEENT: Normocephalic and atraumatic. Pupils are equal, round, and reactive to light. Extraocular movements intact. Oropharynx is clear. NECK: Supple. Full range of motion. No cervical spine tenderness. LUNGS: Clear to auscultation. No wheezes, rales, or rhonchi. CARDIAC: Regular rate and rhythm. The patient does have protrusion of the right clavicle, which he states is from previous injury many years ago where he broke his clavicle, but did not seek medical attention and it healed that way. ABDOMEN: Soft, nontender, nondistended. Normoactive bowel sounds present. No guarding or rigidity. No renal angle tenderness. EXTREMITIES: Right lower extremity notable for swelling in the right knee, tender to light palpation. Limited range of motion. Slight warmth to touch. No erythema. Normal color. Well-healed scars from previous surgery. The patient states he had a fracture that was operated on and hardware was then removed due to infection. SKIN: Normal, warm and dry. NEUROLOGIC: Alert and oriented x3. Facial movements normal. Sensation normal. Speech normal. No neuro deficits on exam. LABORATORY INVESTIGATIONS: As mentioned above in HPI. IMPRESSION AND PLAN: Mr. Zeng is a 73-year-old gentleman who is being admitted for management of the followin. Syncope. He had a sudden syncopal episode after drinking water, followed by a coughing fit. Apparently has had chronic coughing/choking fits whenever he drinks water. This has never been assessed. He is at risk for aspiration and given abnormal findings on the chest x-ray, we will request a CT of the chest and Pulmonary consult. With regard to the syncopal episode, we will obtain an EKG as this has not been done yet. We will obtain orthostatic blood pressures. We will need to obtain echocardiogram and if one has not been done recently as the patient states it has, we will complete one while he is here. Consultation has been placed to Dr. Rodriguez per patient's request. He had a troponin done which was negative. We will add BNP to his labs. We will also interrogate his AICD. 2. Right lower extremity pain. Patient found to have a hematoma involving the right thigh and a joint effusion on the CT. He is unable to bear weight and his range of motion is limited. This is what brought him to the hospital. We will consult Orthopedics to see if this needs to be drained given the amount of pain and limited range of motion. 3. Supratherapeutic INR. We will hold Coumadin. Pharmacy to dose. 4. End-stage renal disease, on hemodialysis. Nephrology consult placed. 5. Hypertension. Monitor blood pressure and resume home medications. 6. Diabetes mellitus. Initiate insulin sliding scale. Monitor blood glucose. 7. Gastrointestinal prophylaxis. Famotidine 20 mg b.i.d. 8. Code status is full. His surrogate decision maker is his , Melissa Zeng. The patient's case discussed with attending who agrees with plan of care as described above. Job ID: [id number]
[2019-02-19] MEDS ORDERED: Famotidine/PF 20 mg/2ml Vial SLOW IVP SCH (21:00)
[2019-02-19] MEDS: Ondansetron ODT 4 MG TAB PO PRN (23:01)
[2019-02-20 06:05] LABS: #Eosinphils 0.5 thou/uL (0.0-0.7); #Lymphocytes 0.9 thou/uL (1.20-3.40); #Monocytes 0.5 thou/uL (0.11-0.59); #Neutrophils 3.5 thou/uL (1.40-6.50); %Basophils 0.5 % (0.0-1.0); %Lymphocytes 16.3 % (21.0-51.0); %Monocytes 9.3 % (0.0-10.0); %Neutrophils 64.9 % (42.0-75.0); Hemoglobin 8.3 g/dL (14.0-18.0); Mean Corpuscular HGB CONC 32.1 g/dL (32.0-36.0); Mean Corpuscular Hemoglobin 31.6 pg (27.0-31.0); Mean Corpuscular Volume 98.3 fL (78.0-98.0); Mean Platelet Volume 7.3 fL (7.4-10.4); Platelet Count 180 thou/uL (130-400); RBC Distribution Width 14.1 % (11.5-14.5); Red Blood Cell (RBC) Count 2.62 mill/uL (4.70-6.10); White Blood Cell (WBC) Count 5.3 thou/uL (4.8-10.8)
[2019-02-20 06:26] LABS: Anion Gap 13 mmol/L (10-20); BUN (Urea Nitrogen) 22 mg/dL (8.4-25.7); Calc. Creatinine Clearance 11 mL/min (70-130); Calcium 8.8 mg/dL (7.8-10.44); Carbon Dioxide 35 mmol/L (23-31); Chloride 90 mmol/L (98-107); Estimated GFR-MDRD 11; Glucose 114 mg/dL (83-110); Potassium 4.1 mmol/L (3.5-5.1); Sodium 134 mmol/L (136-145)
--- NOTE | 2019-02-20 11:24 | CON ---
DATE OF CONSULTATION: 02/20/2019 CHIEF COMPLAINT: Right knee pain. HISTORY OF PRESENT ILLNESS: Mr. Zeng is a 73-year-old male, who presents to the ER for severe pain in his right knee. He states he was drinking water and he started coughing and he had what was thought to be a syncopal episode and fell. LOC about 3 minutes. He was admitted per Internal Medicine, who consulted me for evaluation of the patient's right knee pain. The patient states that many years ago he had a fracture of his right leg, what appears to be a tibial plateau fracture, which required an open reduction and internal fixation, which also required the screws to be removed. The patient could not give me a date of when this occurred or where. The patient is currently complaining probably of right knee pain. PAST MEDICAL HISTORY: Coronary artery disease; previous [place]; diabetes; hyperlipidemia; hypertension; end-stage renal disease, on dialysis; AICD; cardiomyopathy. PAST SURGICAL HISTORY: Fistula, right tibial plateau open reduction and internal fixation with removal of hardware as well as AICD placement. SOCIAL HISTORY: Lives with family. Walks independently. Denies alcohol or illicit drug use. Currently on dialysis 3 times a day. ALLERGIES: NO KNOWN DRUG ALLERGIES. MEDICATIONS: 1. Simvastatin. 2. Lisinopril. 3. Metoprolol. 4. Warfarin. 5. Aspirin. 6. Sevelamer carbonate. 7. Tamsulosin. 8. Flovent. 9. Nitroglycerin. PHYSICAL EXAMINATION: VITAL SIGNS: Temperature 97.9, pulse 85, respiratory rate 16, oxygen saturation 92 L on room air, and blood pressure 142/67. GENERAL: Alert and oriented male, in no acute distress, Nepali speaking. EXTREMITIES: Right lower extremity shows a large effusion without any erythema, tenderness with bending of his knees, unable to completely extend his knee. He has stability in varus and valgus. He has a lateral plateau incision on the lateral aspect of the leg and a medial incision from a previous medial plateau incision. He got brisk cap refill. Palpable pulses. The patient's sensation is intact L4 through S1. Wiggling his toes. He has soft compartments of his leg and thigh. DIAGNOSTIC DATA: Radiographs of his knee show a previous tibial plateau fracture, which appears healed with an effusion without signs of hardware, which had been removed in osteoarthritis. CT scan shows a deep intramuscular hematoma of the right thigh as well as an effusion, osteoarthritis. There appears to be a healed proximal tibial plateau and fibular fracture without hardware. IMPRESSION: 1. Right thigh hematoma. 2. History of previous tibial plateau and fibular fracture with hardware, now removed with possible acute on chronic injury. 3. Multiple medical history. ASSESSMENT AND PLAN: The patient will be placed in a knee immobilizer. He will be touchdown weightbearing. He may begin range of motion as tolerated out of the brace, but must be in the brace to ambulate. The patient will follow up in 2 weeks for evaluation. Given the patient's history of diabetes, his dialysis and congestive heart failure would take a long time for him to resolve this hematoma. This is likely secondary to his supratherapeutic INR, which was five. This will likely resolve with time as he normalizes and is able to move the knee. The patient will follow up us. Job ID: [id number]
[2019-02-20] MEDS ORDERED: Morphine 2 MG/ML SYRINGE SLOW IVP PRN (11:43)
--- NOTE | 2019-02-20 12:51 | CON ---
DATE OF CONSULTATION: 02/20/2019 CONSULTING PHYSICIAN: Hospitalist Services. IMPRESSION: 1. Cough syncope. 2. Anemia secondary to hemorrhage within the thigh. 3. Diabetes. 4. Hypertension. 5. Coronary artery disease. 6. Hyperlipidemia. 7. End-stage renal disease. 8. Supratherapeutic anticoagulation. PLAN: No further testing is needed. HISTORY OF PRESENT ILLNESS: Mr. Zeng is a 73-year-old man with multiple medical problems. He apparently had a coughing fit after choking on something that he was drinking. He briefly lost consciousness and fell out. When he awoke, he felt a bit dizzy, but denied any lateralized weakness or numbness. There was no associated headache, nausea, vomiting, or vertigo. He has never had anything like this before. He has an AICD pacer in place. I do not see any documentation whether this interrogation is being carried out. He came into the emergency room complaining of knee pain. His CT of the brain was normal. His H and H were 8 and 25. His creatinine was 5.14. His INR was 5.3. His CT of the thigh showed a large hematoma. Orthopedic surgery is being consulted to weigh in on this. PAST MEDICAL HISTORY: As listed above. ALLERGIES: NONE. SOCIAL HISTORY: No tobacco or alcohol. FAMILY HISTORY: Noncontributory. REVIEW OF SYSTEMS: Ten-system review of systems is otherwise negative. PHYSICAL EXAMINATION: GENERAL: He is a thin elderly man, sitting up in bed, in no acute distress. VITAL SIGNS: Vital signs have been stable. He is afebrile. HEENT: Pupils are equal and reactive. Conjunctivae clear. Oropharynx clear. NECK: Supple. No lymphadenopathy. EXTREMITIES: No cyanosis. NEUROLOGIC: He is alert and appropriate. His speech is fluent and clear. Cranial nerves are intact. Motor exam showed distal muscle atrophy in the hands and feet. Sensation is diminished in the feet consistent with a peripheral neuropathy. Gait was not tested. No abnormal movements were seen. IMAGING: Reviewed. SUMMARY: This elderly gentleman who had an episode of cough syncope. I do not see any need for further workup. Gustavo sahni. Job ID: [id number]
[2019-02-20] MEDS: Sevelamer Carbonate 800 MG TAB PO SCH ×2 (12:57→18:11)
[2019-02-20] MEDS: traMADol HCl 50 MG TAB PO PRN (12:57)
--- NOTE | 2019-02-20 13:39 | CON ---
DATE OF CONSULTATION: REASON FOR CONSULTATION: End-stage kidney disease, on maintenance hemodialysis. HISTORY OF PRESENT ILLNESS: This is a very pleasant 73-year-old gentleman, who presented to the hospital for right knee pain and swelling. The patient had a fall yesterday. The patient had dialyzes on Friday, Friday, Friday. Denies any nausea, vomiting, or chest pain. PAST MEDICAL HISTORY: Coronary artery disease, PA, diabetes mellitus, hypertension, end-stage kidney disease, history of AV fistula, history of tunneled dialysis catheter, and AICD placement. SOCIAL HISTORY: No alcohol or drug use. ALLERGIES: REVIEWED. MEDICATIONS: Home medications list reviewed. Hospital medication list reviewed. REVIEW OF SYSTEMS: A 15-point review of system was performed and negative except for positives noted above. GENERAL: HEAD: NECK: No swelling or lumps. NOSE: No epistaxis or discharge. EYES: No diplopia or pain. RESPIRATORY: CARDIOVASCULAR: GASTROINTESTINAL: /SENIOR [employer] DEVELOPER: MUSCULOSKELETAL: No joint pain. NEUROPSYCHIATRIC SYSTEMS: No suicidal ideation. No ideation. SKIN: Denies any rash or ulcer. CONSTITUTIONAL: No fever or chills. PHYSICAL EXAMINATION: CONSTITUTIONAL: On exam, the patient is awake and alert. VITAL SIGNS: Afebrile, pulse 85, breathing 16, and blood pressure 135/67. GENERAL APPEARANCE AND MENTAL STATUS: Fair. HEAD/NECK: Normocephalic. Atraumatic. EYES: EOMI. No deformity. EARS: Clear. No ulcers. NOSE: Intact. No lesions. MOUTH: Clear. No discharge. THROAT: Clear. No exudate. LUNGS: Clear. No crackles. CARDIAC: S1, S2. No rub. ABDOMEN: Benign. Bowel sounds positive. GENITALIA/RECTUM: Haney absent. BACK/EXTREMITIES: Edema 0+. NEUROLOGICAL: Alert and motor intact. SKIN: LYMPHATICS: LABORATORY DATA: Reviewed. ASSESSMENT AND PLAN: 1. Stage 6 chronic kidney disease. Plan dialysis on Friday. 2. Hypertension, stable. 3. Anemia, stable. 4. Medications based on glomerular filtration rate are appropriate. Job ID: [id number]
--- NOTE | 2019-02-20 13:41 | PDOC.HOSPP ---
- Subjective Encounter Date: 02/20/19 Encounter Time: 11:15 Subjective: no sob or palp has right knee pain no weakness anywhere - Objective Vital Signs & Weight: Vital Signs (12 hours) Temp Pulse Resp BP Pulse Ox 02/20/19 11:20 97.6 F 80 18 135/96 H 93 L 02/20/19 08:46 97.9 F 85 16 142/67 H 92 L 02/20/19 07:13 70 14 96 02/20/19 04:38 97.6 F 70 20 134/64 98 Weight Weight 143 lb Result Diagrams: 02/20/19 04:53 02/20/19 04:53 Additional Labs: Accuchecks 02/20/19 10:34 POC Glucose 78 Hospitalist ROS - Medication Medications: Active Medications Generic Name Dose Route Start Last Admin Trade Name Freq PRN Reason Stop Dose Admin Albuterol/Ipratropium 3 ml 02/20/19 01:00 02/20/19 07:13 Duoneb NEB 3 ml [id number] FISH Administration Ondansetron HCl 4 mg 02/19/19 18:37 02/19/19 23:01 Zofran Odt PO 4 mg Q6H PRN Administration Nausea/Vomiting Sevelamer Carbonate 3,200 mg 02/20/19 12:00 02/20/19 12:57 Renvela PO 3,200 mg TID-WM FISH Administration Tramadol HCl 50 mg 02/20/19 11:43 02/20/19 12:57 Ultram PO 50 mg Q6H PRN Administration Moderate Pain (4-6) - Exam General Appearance: NAD, awake alert Eye: PERRL, anicteric sclera ENT: no oropharyngeal lesions, moist mucosa Neck: supple, no JVD Heart: RRR, no murmur Respiratory: no wheezes, no rales, rhonchi Gastrointestinal: soft, non-tender, non-distended, normal bowel sounds Extremities - other findings: right knee effusion, tenderness above knee+ Neurological: cranial nerve grossly intact, no focal deficits Psychiatric: normal affect, A&O x 3 Hosp A/P (1) Hematoma of right thigh Code(s): S70.11XA - CONTUSION OF RIGHT THIGH, INITIAL ENCOUNTER Status: Acute Qualifiers: Encounter type: subsequent encounter Qualified Code(s): S70.11XD - Contusion of right thigh, subsequent encounter (2) Dysphagia Code(s): R13.10 - DYSPHAGIA, UNSPECIFIED Status: Chronic (3) CAD (coronary artery disease) Code(s): I25.10 - ATHSCL HEART DISEASE OF [place] CORONARY ARTERY W/O ANG PCTRS Status: Chronic Qualifiers: Coronary Disease-Associated Artery/Lesion type: [place] artery [place] vs. transplanted heart: [place] heart Associated angina: without angina Qualified Code(s): I25.10 - Atherosclerotic heart disease of [place] coronary artery without angina pectoris (4) HTN (hypertension) Code(s): I10 - ESSENTIAL (PRIMARY) HYPERTENSION Status: Chronic Qualifiers: Hypertension type: essential hypertension Qualified Code(s): I10 - Essential (primary) hypertension (5) Chronic anemia Code(s): D64.9 - ANEMIA, UNSPECIFIED Status: Chronic (6) AICD (automatic cardioverter/defibrillator) present Code(s): Z95.810 - PRESENCE OF AUTOMATIC (IMPLANTABLE) CARDIAC DEFIBRILLATOR Status: Chronic (7) Diabetes mellitus type 2 in nonobese Code(s): E11.9 - TYPE 2 DIABETES MELLITUS WITHOUT COMPLICATIONS Status: Chronic (8) Dyslipidemia Code(s): E78.5 - HYPERLIPIDEMIA, UNSPECIFIED Status: Chronic (9) ESRD (end stage renal disease) on dialysis Code(s): N18.6 - END STAGE RENAL DISEASE; Z99.2 - DEPENDENCE ON RENAL DIALYSIS Status: Chronic - Plan pt does not know the reason for him being on coumadin, sees has known h/o chf with systolic dysfunction will need HD pain control, ambulate per ortho adv hemostable hold coumadin for today and restart in am, inr is 5.3 has known h/o dysphagia per patient wants to be DNAR, this was d/w patient using [employer] video translation service at bedside.
[2019-02-20] MEDS ORDERED: Warfarin Sodium 5 MG TAB PO SCH (17:00)
[2019-02-20] MEDS: Acetaminophen/Codeine 30-300mg Tablet PO PRN (17:19)
[2019-02-20] MEDS: Atorvastatin Calcium 10 MG TAB PO SCH (20:10)
[2019-02-20] MEDS ORDERED: Famotidine/PF 20 mg/2ml Vial SLOW IVP SCH (21:00)
--- NOTE | 2019-02-20 21:46 | CON ---
DATE OF CONSULTATION: 02/20/2019 INDICATION FOR CONSULTATION: A 73-year-old patient with a history of cardiomyopathy and coronary artery disease, who fell at home after having a syncopal episode. HISTORY OF PRESENT ILLNESS: This very unfortunate 73-year-old gentleman with diffuse coronary artery disease, who has been followed by Dr. Rodriguez for several years now. He has undergone angioplasty and stent placements in the past. He has also had a BiV defibrillator placed. He has end-stage renal disease on dialysis. He was at home evening. He got up to get some water to drink, apparently then choked on the water, started coughing, and then passed out. Then, the next day, he did not seek medical attention at that time. He then went to dialysis on Friday and was doing very well and then decided to come to the emergency room because of his knee, where he fell, was hurting so badly that he could not stand the pain. He did have a large hematoma there and has been on Coumadin due to his history of severe cardiomyopathy and coronary artery disease. He denied any cardiac complaints otherwise. His AICD has been interrogated. The function appears to be normal. He does have a somewhat wide QRS complex with a right bundle-branch block pattern, which would indicate that he most likely is pacing from both ventricles and do see both ventricular spikes. However, we may be able to narrow of this complex slightly by some adjustments of the pacemaker. We will discuss this with the technicians on Friday. Otherwise, he appears to be doing relatively well from a cardiac standpoint. PAST MEDICAL HISTORY: Significant for coronary artery disease, angioplasty and stent placement. He has had AICD placed, which is a biventricular device. He has diabetes, end-stage renal disease on hemodialysis, hyperlipidemia, hypertension. He has had fistulas placed for his dialysis in the left arm. He has had right knee surgery (this is the knee that he fell on, he injured on night). SOCIAL HISTORY: He still lives with family. He is able to actually get around independently. He has no alcohol or tobacco abuse. ALLERGIES: NONE. MEDICATIONS: Included simvastatin, lisinopril, metoprolol, aspirin, sevelamer carbonate, warfarin, tamsulosin, Flovent, nitroglycerin transdermal patch which was started on Friday, he did not have the patch on apparently when he fell, and he had returned actually from dialysis, he may have been hypotensive, but the interrogation of the device does not show that he had any arrhythmias or pauses. REVIEW OF SYSTEMS: Unremarkable except for what is noted in the history of present illness. PHYSICAL EXAMINATION: GENERAL: Reveals an elderly gentleman who is in no acute distress at this time. VITAL SIGNS: Blood pressure is 135/96, heart rate is 70-80. He is pacing from the device appears to be all the time. Respiratory rate is 18. He is afebrile. HEENT: Shows head to be normocephalic and atraumatic. Carotid pulses are present without any gross bruits. CHEST: His chest actually is clear to auscultation, did not hear any significant rales, rhonchi, or wheezing. CARDIOVASCULAR: Reveals a regular rate and rhythm. He has a well-healed surgical incision over the AICD site. ABDOMEN: Soft and nontender. Positive bowel sounds are present. EXTREMITIES: Showed no clubbing or cyanosis. The right knee is swollen and tender and fluctuant what appears to be a hematoma. Pedal pulses are present. There is no other significant edema noted. NEUROLOGICAL: He appears to be intact. LABORATORY DATA: Show a WBC of 5.3, hemoglobin was 8.3, hematocrit 25.8 with a platelet count of 180,000. His potassium was 4.1, sodium was 134, creatinine was 5.14, bicarb was 35. His BNP was 3210. IMAGING: His chest x-ray shows the biventricular AICD in place. He has some chronic interstitial changes. He does have significant apparently some apical scarring noted with some deviation of the trachea to the right and there was a question of a right lower lobe infiltrate. In comparison to his previous chest x-ray, it appears that he is somewhat rotated, but we may need to repeat the chest x-ray just to verify as there was a significant change from previous chest x-rays. He has not had an echocardiogram since 2018. We will repeat the echocardiogram to see whether or not he has had any changes. He has been actually on his review of systems complaining of increased fatigue just with minimal exertion. His EKG shows 100% pacing with the device often A-pacing and V-pacing, and sometimes atrial sensing and ventricular pacing with a right bundle-branch block pattern. IMPRESSION AND PLAN: 1. Syncopal episode, which most likely was due to orthostasis after the coughing or decreased venous return due to the coughing episode that the patient has suffered. There was no indication that he had any arrhythmias from the device. No indication of the device failure and he is set in the lower rate of 70 and is pacing essentially 100% of the time. 2. History of coronary artery disease. He has severe coronary artery disease. This appears to be stable at this time. His enzymes did not show any evidence of myocardial infarction. Troponin I is 0.018. 3. Severe cardiomyopathy. Ejection fraction has been severely decreased at some time. We will evaluate repeat echocardiogram. The BNP is significantly elevated. We were unable to give him any diuretics. This will have to be dealt with by the dumper with his hemodialysis to remove the fluid. 4. History of hypertension. This is under good control at this time. He may have become hypotensive. 5. Diabetes. This will be dealt with by the primary care service. 6. As far as his other medical problems, these also will be dealt with by the primary care service. From a cardiology standpoint, he actually appears to be relatively stable despite all his medical problems. Further recommendations will depend on the results of the echocardiogram. Job ID: [id number]
[2019-02-20] MEDS: Ondansetron ODT 4 MG TAB PO PRN (22:09)
--- NOTE | 2019-02-20 22:25 | CON ---
DATE OF CONSULTATION: HISTORY OF PRESENT ILLNESS: Mr. Zeng is a 73-year-old male, who was admitted after a fall. He is complaining of right knee pain. He was seen by Orthopedic Surgery this morning. Apparently, CT scanning shows an intramuscular hematoma in the right thigh. He has a previous tibial plateau fracture, which has healed. He does have an effusion. He also has a healed fibular fracture. Knee immobilization was recommended. I was consulted because of an abnormal chest CT. He is Slov[place]-speaking, but family was there to interpret. PAST MEDICAL HISTORY: 1. According to family has never been remarkable for any type of pulmonary infection, although I have explained to the family, he could have had something when he is very young and just would push through it. 2. History of coronary artery disease. 3. History of coronary stenting. 4. Diabetes. 5. Lipid disorder. 6. Hypertension. 7. History of renal failure, on dialysis. 8. History of defibrillator for cardiomyopathy. 9. History of vascular access procedures. 10. History of right knee surgery in the past with removal of hardware. SOCIAL HISTORY: He is a nonsmoker and nondrinker. ALLERGIES: HE HAS NO DRUG ALLERGIES. MEDICATIONS: Have been reviewed. REVIEW OF SYSTEMS: Ten points otherwise negative. PHYSICAL EXAMINATION: GENERAL: He is pleasant gentleman, afebrile. VITAL SIGNS: Heart rate is 80, respiratory rate is 18, oximetry is 93% on room air, blood pressure 118/57. HEENT: Pupils are equal. Sclerae are anicteric. NECK: Supple. LUNGS: Clear. HEART: Regular rhythm. No S3. S1, S2 are normal. Grade 2/6 systolic murmur. ABDOMEN: Soft and nontender. EXTREMITIES: Without clubbing, cyanosis, or edema. His right knee is swollen and he does not like having the blanket or a sheet on his knee. LABORATORY DATA: White count 5.3, hemoglobin 8.3, platelets 180. Sodium 134, potassium 4.1, chloride 90, bicarb 35, BUN 22, creatinine 5.14. IMAGING DATA: Chest CT was reviewed. He has apical volume loss, apical scarring, bronchiectasis, tracheal shift because of apical volume loss. He has calcified pleural plaques. 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 I doubt that his pleural plaques are related to asbestos exposure. It is much more likely this is related to the previous inflammatory process that he has involved , predominantly his upper lobes. Extensive volume loss and tracheal shift, result of inflammatory process years ago. I doubt he has an acute infectious process, especially since he presented with a history of a fall. We have no old chest CTs to compare to. ER films from 2015 showing extensive upper lobe volume contraction, especially on the right. I would continue to move forward just dealing with his fall and his end-stage renal disease. I do not feel any further workup of his radiographic abnormalities are indicated. Job ID: [id number] 70 minute consult with 50% time on unit coordinating care MTDD
[2019-02-21 04:40] LABS: Prothrombin Time 59.7 SEC (12.0-14.7)
[2019-02-21] MEDS: Acetaminophen/Codeine 30-300mg Tablet PO PRN (07:48)
[2019-02-21 08:53] LABS: #Eosinphils 0.3 thou/uL (0.0-0.7); #Lymphocytes 0.6 thou/uL (1.20-3.40); #Monocytes 0.5 thou/uL (0.11-0.59); #Neutrophils 7.2 thou/uL (1.40-6.50); %Eosinophils 3.6 % (0.0-10.0); %Lymphocytes 6.6 % (21.0-51.0); %Monocytes 6.1 % (0.0-10.0); %Neutrophils 83.7 % (42.0-75.0); Hemoglobin 8.1 g/dL (14.0-18.0); Mean Corpuscular HGB CONC 32.1 g/dL (32.0-36.0); Mean Corpuscular Hemoglobin 31.7 pg (27.0-31.0); Mean Corpuscular Volume 98.9 fL (78.0-98.0); Platelet Count 192 thou/uL (130-400); RBC Distribution Width 14.2 % (11.5-14.5); Red Blood Cell (RBC) Count 2.54 mill/uL (4.70-6.10); White Blood Cell (WBC) Count 8.6 thou/uL (4.8-10.8)
[2019-02-21 09:06] LABS: Anion Gap 17 mmol/L (10-20); BUN (Urea Nitrogen) 35 mg/dL (8.4-25.7); Calc. Creatinine Clearance 8 mL/min (70-130); Calcium 8.9 mg/dL (7.8-10.44); Carbon Dioxide 32 mmol/L (23-31); Chloride 88 mmol/L (98-107); Estimated GFR-MDRD 7; Glucose 85 mg/dL (83-110); Potassium 4.7 mmol/L (3.5-5.1); Sodium 132 mmol/L (136-145)
[2019-02-21] MEDS: Sevelamer Carbonate 800 MG TAB PO SCH ×3 (09:36→18:29)
[2019-02-21] MEDS: Lisinopril 2.5 MG TAB PO SCH (09:38)
--- NOTE | 2019-02-21 09:38 | CON ---
DATE OF CONSULTATION: 02/21/2019 HISTORY OF PRESENT ILLNESS: Karri is a 73-year-old male with multiple medical problems, status post fall, injuring his right knee, so got an effusion, supratherapeutic INR, currently in bed, tried to work with therapy yesterday with difficulty with range of motion. PHYSICAL EXAMINATION: GENERAL: The patient is alert and oriented, no acute distress. EXTREMITIES: Right lower extremity still with effusion. Stable ligamentous exam. Neurovascularly intact distally. Soft compartments. Large effusion. IMPRESSION: Status post fall with an [id number] fracture mechanism with hemarthrosis and hematoma secondary to supratherapeutic INR. ASSESSMENT AND PLAN: The patient will be touchdown weightbearing. He will remain in a knee immobilizer, likely need a followup in my clinic in 2 to 4 weeks. The patient will be treated conservatively given his multiple medical problems. Job ID: [id number]
[2019-02-21] MEDS: Docusate 100 MG CAP PO SCH ×3 (09:55→20:44)
[2019-02-21] MEDS: Polyethylene Glycol 3350 17 GM Packet PO SCH ×2 (09:55→10:29)
[2019-02-21] MEDS: Lidocaine 5% Patch TD SCH (09:58)
--- NOTE | 2019-02-21 13:09 | PDOC.HOSPP ---
- Subjective Encounter Date: 02/21/19 Encounter Time: 10:20 Subjective: no sob or palp or chest pain no bleeding anywhere has right knee pain - Objective Vital Signs & Weight: Vital Signs (12 hours) Temp Pulse Resp BP BP Pulse Ox 02/21/19 13:01 99 16 02/21/19 11:25 99.1 F 91 20 126/70 100 02/21/19 09:38 99 130/71 02/21/19 07:47 99.7 F H 99 17 120/64 94 L 02/21/19 07:17 93 16 94 L 02/21/19 04:00 98.6 F 92 20 114/64 92 L Weight Weight 143 lb I&O: 02/20/19 02/21/19 02/22/19 06:59 06:59 06:59 Intake Total 680 Output Total 0 Balance 680 Result Diagrams: 02/21/19 08:43 02/21/19 08:43 Additional Labs: Accuchecks 02/21/19 02/21/19 02/21/19 10:51 09:48 07:17 POC Glucose 87 92 59 L* 02/21/19 02/20/19 02/20/19 05:54 20:39 17:07 POC Glucose 61 L 151 H 116 H Hospitalist ROS - Medication Medications: Active Medications Generic Name Dose Route Start Last Admin Trade Name Freq PRN Reason Stop Dose Admin Acetaminophen/Codeine Phosphate 1 tab 02/20/19 11:45 02/21/19 07:48 Tylenol #3 PO 1 tab DAILYPRN PRN Administration Pain Albuterol/Ipratropium 3 ml 02/20/19 01:00 02/21/19 13:01 Duoneb NEB 3 ml [id number] FISH Administration Atorvastatin Calcium 10 mg 02/20/19 21:00 02/20/19 20:10 Lipitor PO 10 mg HS FISH Administration Docusate Sodium 100 mg 02/21/19 09:00 02/21/19 10:29 Colace PO 100 mg BID FISH Administration Isosorbide Mononitrate 120 mg 02/21/19 09:00 02/21/19 09:40 Imdur PO 120 mg QAM FISH Administration Lidocaine 1 patch 02/21/19 09:00 02/21/19 09:58 Lidoderm 5% Patch TD 1 patch 0900 FISH Administration Lisinopril 2.5 mg 02/21/19 09:00 02/21/19 09:38 Zestril PO 2.5 mg DAILY FISH Administration Metoprolol Succinate 25 mg 02/21/19 09:00 02/21/19 09:39 Toprol Xl PO 25 mg DAILY FISH Administration Ondansetron HCl 4 mg 02/19/19 18:37 02/20/19 22:09 Zofran Odt PO 4 mg Q6H PRN Administration Nausea/Vomiting Polyethylene Glycol 17 gm 02/21/19 09:00 02/21/19 10:29 Miralax PO 17 gm DAILY FISH Administration Sevelamer Carbonate 3,200 mg 02/20/19 12:00 02/21/19 09:36 Renvela PO 3,200 mg TID-WM FISH Administration Tramadol HCl 50 mg 02/20/19 11:43 02/20/19 12:57 Ultram PO 50 mg Q6H PRN Administration Moderate Pain (4-6) - Exam General Appearance: awake alert Eye: PERRL, anicteric sclera ENT: no oropharyngeal lesions, moist mucosa Neck: supple, no JVD Heart: no murmur, no gallops Respiratory: no wheezes, no rales Gastrointestinal: soft, non-tender, non-distended, normal bowel sounds Extremities - other findings: right knee effusion+, tenderness above knee+ Neurological: cranial nerve grossly intact, no focal deficits Psychiatric: A&O x 3 Hosp A/P (1) Hematoma of right thigh Code(s): S70.11XA - CONTUSION OF RIGHT THIGH, INITIAL ENCOUNTER Status: Acute Qualifiers: Encounter type: subsequent encounter Qualified Code(s): S70.11XD - Contusion of right thigh, subsequent encounter (2) Dysphagia Code(s): R13.10 - DYSPHAGIA, UNSPECIFIED Status: Chronic (3) CAD (coronary artery disease) Code(s): I25.10 - ATHSCL HEART DISEASE OF [place] CORONARY ARTERY W/O ANG PCTRS Status: Chronic Qualifiers: Coronary Disease-Associated Artery/Lesion type: [place] artery [place] vs. transplanted heart: [place] heart Associated angina: without angina Qualified Code(s): I25.10 - Atherosclerotic heart disease of [place] coronary artery without angina pectoris (4) HTN (hypertension) Code(s): I10 - ESSENTIAL (PRIMARY) HYPERTENSION Status: Chronic Qualifiers: Hypertension type: essential hypertension Qualified Code(s): I10 - Essential (primary) hypertension (5) Chronic anemia Code(s): D64.9 - ANEMIA, UNSPECIFIED Status: Chronic (6) AICD (automatic cardioverter/defibrillator) present Code(s): Z95.810 - PRESENCE OF AUTOMATIC (IMPLANTABLE) CARDIAC DEFIBRILLATOR Status: Chronic (7) Diabetes mellitus type 2 in nonobese Code(s): E11.9 - TYPE 2 DIABETES MELLITUS WITHOUT COMPLICATIONS Status: Chronic (8) Dyslipidemia Code(s): E78.5 - HYPERLIPIDEMIA, UNSPECIFIED Status: Chronic (9) ESRD (end stage renal disease) on dialysis Code(s): N18.6 - END STAGE RENAL DISEASE; Z99.2 - DEPENDENCE ON RENAL DIALYSIS Status: Chronic (10) Chronic systolic CHF (congestive heart failure), NYHA class 3 Code(s): I50.22 - CHRONIC SYSTOLIC (CONGESTIVE) HEART FAILURE Status: Chronic - Plan pt does not know the reason for him being on coumadin, sees , 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 May transfer to med floor if ok with Cardiology, dc planning
--- NOTE | 2019-02-21 14:32 | PRG ---
DATE OF SERVICE: 02/21/2019 SUBJECTIVE: This is a 73-year-old gentleman, being seen for end-stage renal disease. The patient denied nausea, vomiting, or chest pain. OBJECTIVE: CONSTITUTIONAL: The patient is awake and alert. VITAL SIGNS: Afebrile, pulse 75, breathing 16, blood pressure 126/70. GENERAL APPEARANCE AND MENTAL STATUS: Fair. HEAD/NECK: Normocephalic. Atraumatic. EYES: EOMI. No deformity. EARS: Clear. No ulcers. NOSE: Intact. No lesions. MOUTH: Clear. No discharge. THROAT: Clear. No exudate. LUNGS: Clear. No crackles. CARDIAC: S1, S2. No rub. ABDOMEN: Benign. Bowel sounds positive. GENITALIA/RECTUM: Haney absent. BACK/EXTREMITIES: Edema 0+. NEUROLOGICAL: Alert and motor intact. SKIN: LYMPHATICS: LABORATORY DATA: Labs reviewed. ASSESSMENT AND PLAN: 1. Stage 6 chronic kidney disease. Plan dialysis tomorrow. 2. Hypertension, stable. 3. Anemia, stable. Medications based on GFR appropriate. Job ID: [id number]
--- NOTE | 2019-02-21 15:48 | PDOC.CPN ---
- Subjective Date: 02/21/19 Time: 16:29 Interval history: The pt seen and examined. No overnight events. No cardiac complaints. - Objective Allergies/Adverse Reactions: Allergies Allergy/AdvReac Type Severity Reaction Status Date / Time No Known Drug Allergies Allergy Verified 08/09/18 16:13 Visit Medications: Current Medications Acetaminophen (Tylenol) 650 mg PO Q4H PRN PRN Reason: Headache/Fever/Mild Pain (1-3) Acetaminophen (Tylenol) 650 mg ND Q4H PRN PRN Reason: Headache/Fever/Mild Pain (1-3) Acetaminophen/Codeine Phosphate (Tylenol #3) 1 tab PO DAILYPRN PRN PRN Reason: Pain Last Admin: 02/21/19 07:48 Dose: 1 tab Albuterol/Ipratropium (Duoneb) 3 ml NEB [id number] [facility] Last Admin: 02/21/19 13:01 Dose: 3 ml Atorvastatin Calcium (Lipitor) 10 mg PO HS [facility] Last Admin: 02/20/19 20:10 Dose: 10 mg Dextrose/Water (Dextrose 50%) 25 gm SLOW IVP PRN PRN PRN Reason: Hypoglycemia Docusate Sodium (Colace) 100 mg PO BID [facility] Last Admin: 02/21/19 10:29 Dose: 100 mg Glucagon (Glucagon) 1 mg IM PRN PRN PRN Reason: Hypoglycemia Dextrose/Water (D5w) 1,000 mls @ 0 mls/hr IV .Q0M PRN PRN Reason: Hypoglycemia Insulin Human Lispro (Humalog) 0 units SC .MILD SLIDING SCALE PRN PRN Reason: Mild Correctional Scale Insulin Human Lispro (Humalog) 0 units SC .BEDTIME SLIDING SC PRN PRN Reason: Bedtime Correctional Scale Isosorbide Mononitrate (Imdur) 120 mg PO QAM [facility] Last Admin: 02/21/19 09:40 Dose: 120 mg Lidocaine (Lidoderm 5% Patch) 1 patch TD 0900 [facility] Last Admin: 02/21/19 09:58 Dose: 1 patch Lisinopril (Zestril) 2.5 mg PO DAILY [facility] Last Admin: 02/21/19 09:38 Dose: 2.5 mg Metoprolol Succinate (Toprol Xl) 25 mg PO DAILY [facility] Last Admin: 02/21/19 09:39 Dose: 25 mg Miscellaneous Medication (Pharmacy To Dose) 1 each PO PRN PRN PRN Reason: Pharmacy to dose: WARF[facility]IN Miscellaneous Medication (Lidocaine Patch Removal) 1 each TOP 2100 FISH Morphine Sulfate (Morphine) 2 mg SLOW IVP Q4H PRN PRN Reason: Severe Pain (7-10) Ondansetron HCl (Zofran Odt) 4 mg PO Q6H PRN PRN Reason: Nausea/Vomiting Last Admin: 02/20/19 22:09 Dose: 4 mg Ondansetron HCl (Zofran) 4 mg IVP Q6H PRN PRN Reason: Nausea/Vomiting Polyethylene Glycol (Miralax) 17 gm PO DAILY [facility] Last Admin: 02/21/19 10:29 Dose: 17 gm Sevelamer Carbonate (Renvela) 3,200 mg PO TID-[facility] Last Admin: 02/21/19 15:08 Dose: Not Given Sodium Chloride (Flush - Normal Saline) 10 ml IVF Q12HR PRN PRN Reason: Saline Flush Sodium Chloride (Flush - Normal Saline) 10 ml IVF PRN PRN PRN Reason: Saline Flush Tramadol HCl (Ultram) 50 mg PO Q6H PRN PRN Reason: Moderate Pain (4-6) Last Admin: 02/20/19 12:57 Dose: 50 mg Vital Signs & Weight: Vital Signs Temp Pulse Resp BP BP Pulse Ox 02/21/19 15:27 99.7 F H 97 17 130/69 92 L 02/21/19 13:01 99 16 02/21/19 11:25 99.1 F 91 20 126/70 100 02/21/19 09:38 99 130/71 02/21/19 07:47 99.7 F H 99 17 120/64 94 L 02/21/19 07:17 93 16 94 L 02/21/19 04:00 98.6 F 92 20 114/64 92 L Weight 143 lb - Physical Exam General: appears well Cardiac: regular rate and rhythm, S1/S2 Lungs: clear to auscultation, decreased breath sounds - Labs Result Diagrams: 02/21/19 08:43 02/21/19 08:43 Troponin/CKMB Troponin I 0.018 ng/mL (< 0.028) 02/19/19 13:01 - Telemetry Sinus rhythms and dysrhythmias: other (Vpaced) - Assessment/Plan Assessment/Plan: 1. S/p syncopal episode - AICD interrogation showed normal function without any arrhythmia; 2. Ischemic CMY with hx of BiV-AICD 3. Chronic systolic HF with EF 25-30% - Asymptomatic; on bblocker and Lisinopril ; on HD 4. CAD with hx of stent placement 5. HTN - stable 6. DM type 2 7. ESRD with HD 8. HLD 9. Chronic Anemia 10. Prox Afib with Coumadin - according to [facility] OV note, he has been on Coumadin for Prox Afib. Elevated INR - 7.0 today from 5.3 yesterday 11. h/o dysphagia per patient MAR reviewed
--- NOTE | 2019-02-21 17:51 | CT ---
CT Brain WO Con History: Confusion. Evaluate for hemorrhage. Comparison: CT chest prior Findings: No acute hemorrhage or infarct. No midline shift or mass effect. Moderate microvascular isc hemic changes. Extensive maxillary mucosal sinus disease. Calvarium is intact. Impression: No acute intracranial abnormality. No significant change from 2 days ago.
[2019-02-21] MEDS: Atorvastatin Calcium 10 MG TAB PO SCH (20:44)
[2019-02-21] MEDS: Lidocaine Patch Removal 1 EACH TOP SCH (20:44)
[2019-02-22] MEDS: Ondansetron ODT 4 MG TAB PO PRN (04:19)
[2019-02-22 04:46] LABS: #Eosinphils 0.1 thou/uL (0.0-0.7); #Lymphocytes 0.8 thou/uL (1.20-3.40); #Monocytes 0.9 thou/uL (0.11-0.59); #Neutrophils 8.1 thou/uL (1.40-6.50); %Eosinophils 1.3 % (0.0-10.0); %Lymphocytes 7.9 % (21.0-51.0); %Monocytes 8.7 % (0.0-10.0); %Neutrophils 82.1 % (42.0-75.0); Hemoglobin 7.6 g/dL (14.0-18.0); Mean Corpuscular HGB CONC 32.8 g/dL (32.0-36.0); Mean Corpuscular Hemoglobin 32.1 pg (27.0-31.0); Mean Corpuscular Volume 97.6 fL (78.0-98.0); Mean Platelet Volume 7.3 fL (7.4-10.4); Platelet Count 197 thou/uL (130-400); RBC Distribution Width 14.3 % (11.5-14.5); Red Blood Cell (RBC) Count 2.37 mill/uL (4.70-6.10); White Blood Cell (WBC) Count 9.9 thou/uL (4.8-10.8)
[2019-02-22 04:55] LABS: Prothrombin Time 66.4 SEC (12.0-14.7)
[2019-02-22 05:09] LABS: Anion Gap 15 mmol/L (10-20); BUN (Urea Nitrogen) 47 mg/dL (8.4-25.7); Calc. Creatinine Clearance 6 mL/min (70-130); Calcium 8.8 mg/dL (7.8-10.44); Carbon Dioxide 33 mmol/L (23-31); Chloride 86 mmol/L (98-107); Estimated GFR-MDRD 6; Glucose 60 mg/dL (83-110); Potassium 5.5 mmol/L (3.5-5.1); Sodium 128 mmol/L (136-145)
[2019-02-22] MEDS ORDERED: Phytonadione 10 MG/ML AMP PO SCH (05:45)
[2019-02-22] MEDS: Lidocaine 5% Patch TD SCH (09:02)
[2019-02-22] MEDS: Sevelamer Carbonate 800 MG TAB PO SCH ×3 (09:07→18:35)
[2019-02-22] MEDS: Docusate 100 MG CAP PO SCH ×2 (09:34→20:41)
[2019-02-22] MEDS: Lisinopril 2.5 MG TAB PO SCH (09:35)
[2019-02-22] MEDS: Polyethylene Glycol 3350 17 GM Packet PO SCH (09:35)
[2019-02-22 10:32] LABS: HBSAg Index 0.17 S/CO (0-0.99); Hep B Surf Ag Non-Reactive S/CO (NonReactive)
[2019-02-22] MEDS ORDERED: Bisacodyl 10 MG SUPP PR PRN (11:57)
--- NOTE | 2019-02-22 12:05 | PRG ---
DATE OF SERVICE: 02/22/2019 SUBJECTIVE: A 73-year-old male, being seen for end-stage renal disease. The patient denied nausea, vomiting, or chest pain. OBJECTIVE: CONSTITUTIONAL: The patient is awake, alert. VITAL SIGNS: breathing 16, blood pressure . GENERAL APPEARANCE AND MENTAL STATUS: Fair. HEAD/NECK: Normocephalic. Atraumatic. EYES: EOMI. No deformity. EARS: Clear. No ulcers. NOSE: Intact. No lesions. MOUTH: Clear. No discharge. THROAT: Clear. No exudate. LUNGS: Clear. No crackles. CARDIAC: S1, S2. No rub. ABDOMEN: Benign. Bowel sounds positive. GENITALIA/RECTUM: Haney absent. BACK/EXTREMITIES: Edema 0+. NEUROLOGICAL: Alert and motor intact. SKIN: LYMPHATICS: LABORATORY DATA: Reviewed. ASSESSMENT: 1. Stage 6 chronic kidney disease. Plan hemodialysis. 2. Hypertension, stable. 3. Anemia. We would recommend transfusion. 4. Medications based on GFR appropriate. Job ID: [id number]
--- NOTE | 2019-02-22 13:51 | PDOC.HOSPP ---
- Subjective Encounter Date: 02/22/19 Encounter Time: 10:20 Subjective: awake, responds well in [place] right knee pain is better has not ambulated says he doesn't feel like eating anything - Objective Vital Signs & Weight: Vital Signs (12 hours) Temp Pulse Resp BP Pulse Ox 02/22/19 13:03 86 16 90 L 02/22/19 11:20 98.2 F 85 20 134/66 97 02/22/19 07:33 98.7 F 91 18 130/69 92 L 02/22/19 06:59 85 16 95 02/22/19 03:48 99.2 F 85 19 122/62 98 Weight Weight 143 lb 4.8 oz I&O: 02/21/19 02/22/19 02/23/19 06:59 06:59 06:59 Intake Total 680 1450 Output Total 0 0 Balance 680 1450 Result Diagrams: 02/22/19 04:19 02/22/19 04:19 Additional Labs: Accuchecks 02/22/19 02/22/19 02/22/19 12:59 10:57 09:58 POC Glucose 93 97 160 H 02/22/19 02/22/19 02/22/19 08:50 05:17 04:22 POC Glucose 59 L* 74 71 02/22/19 02/21/19 02/21/19 01:05 20:39 16:27 POC Glucose 61 L 72 123 H 02/21/19 15:04 POC Glucose 85 Hospitalist ROS - Medication Medications: Active Medications Generic Name Dose Route Start Last Admin Trade Name Freq PRN Reason Stop Dose Admin Albuterol/Ipratropium 3 ml 02/20/19 01:00 02/22/19 13:03 Duoneb NEB 3 ml [id number] FISH Administration Atorvastatin Calcium 10 mg 02/20/19 21:00 02/21/19 20:44 Lipitor PO 10 mg HS FISH Administration Dextrose/Water 25 gm 02/19/19 18:33 02/22/19 09:09 Dextrose 50% SLOW IVP 25 gm PRN PRN Administration Hypoglycemia Docusate Sodium 100 mg 02/21/19 09:00 02/22/19 09:34 Colace PO Not Given BID FISH Isosorbide Mononitrate 120 mg 02/21/19 09:00 02/22/19 09:34 Imdur PO Not Given QAM FISH Lidocaine 1 patch 02/21/19 09:00 02/22/19 09:02 Lidoderm 5% Patch TD 1 patch 09 FISH Administration Lisinopril 2.5 mg 02/21/19 09:00 02/22/19 09:35 Zestril PO Not Given DAILY FISH Metoprolol Succinate 25 mg 02/21/19 09:00 02/22/19 09:35 Toprol Xl PO Not Given DAILY [facility] Miscellaneous Medication 1 each 02/21/19 21:00 02/21/19 20:44 Lidocaine Patch Removal TOP 1 each 2100 FISH Administration Ondansetron HCl 4 mg 02/19/19 18:37 02/22/19 04:19 Zofran Odt PO 4 mg Q6H PRN Administration Nausea/Vomiting Polyethylene Glycol 17 gm 02/21/19 09:00 02/22/19 09:35 Miralax PO Not Given DAILY [facility] Sevelamer Carbonate 3,200 mg 02/20/19 12:00 02/22/19 13:22 Renvela PO Not Given TID-WM FISH Tramadol HCl 50 mg 02/20/19 11:43 02/20/19 12:57 Ultram PO 50 mg Q6H PRN Administration Moderate Pain (4-6) - Exam General Appearance: NAD, awake alert Eye: PERRL, anicteric sclera ENT: no oropharyngeal lesions, moist mucosa Neck: supple, no JVD Heart: RRR, no murmur Respiratory: no wheezes, no rales Gastrointestinal: soft, non-tender, non-distended, normal bowel sounds Extremities: no edema Extremities - other findings: right knee effusion+ Neurological: cranial nerve grossly intact, no focal deficits Psychiatric: normal affect, A&O x 3 Hosp A/P (1) Hematoma of right thigh Code(s): S70.11XA - CONTUSION OF RIGHT THIGH, INITIAL ENCOUNTER Status: Acute Qualifiers: Encounter type: subsequent encounter Qualified Code(s): S70.11XD - Contusion of right thigh, subsequent encounter (2) Dysphagia Code(s): R13.10 - DYSPHAGIA, UNSPECIFIED Status: Chronic (3) CAD (coronary artery disease) Code(s): I25.10 - ATHSCL HEART DISEASE OF [place] CORONARY ARTERY W/O ANG PCTRS Status: Chronic Qualifiers: Coronary Disease-Associated Artery/Lesion type: [place] artery [place] vs. transplanted heart: [place] heart Associated angina: without angina Qualified Code(s): I25.10 - Atherosclerotic heart disease of [place] coronary artery without angina pectoris (4) HTN (hypertension) Code(s): I10 - ESSENTIAL (PRIMARY) HYPERTENSION Status: Chronic Qualifiers: Hypertension type: essential hypertension Qualified Code(s): I10 - Essential (primary) hypertension (5) Chronic anemia Code(s): D64.9 - ANEMIA, UNSPECIFIED Status: Chronic (6) AICD (automatic cardioverter/defibrillator) present Code(s): Z95.810 - PRESENCE OF AUTOMATIC (IMPLANTABLE) CARDIAC DEFIBRILLATOR Status: Chronic (7) Diabetes mellitus type 2 in nonobese Code(s): E11.9 - TYPE 2 DIABETES MELLITUS WITHOUT COMPLICATIONS Status: Chronic (8) Dyslipidemia Code(s): E78.5 - HYPERLIPIDEMIA, UNSPECIFIED Status: Chronic (9) ESRD (end stage renal disease) on dialysis Code(s): N18.6 - END STAGE RENAL DISEASE; Z99.2 - DEPENDENCE ON RENAL DIALYSIS Status: Chronic (10) Chronic systolic CHF (congestive heart failure), NYHA class 3 Code(s): I50.22 - CHRONIC SYSTOLIC (CONGESTIVE) HEART FAILURE Status: Chronic (11) Hypoglycemia Code(s): E16.2 - HYPOGLYCEMIA, UNSPECIFIED Status: Acute - Plan has known h/o chf with systolic dysfunction, current ef is 25% HD per neph adv inr is still raising up, dc coumadin for next 3 days, got low dose vit K, no obvious bleeding anywhere. pain control, ambulate per ortho adv, rehab/swing bed hemostable has known h/o dysphagia per patient wants to be DNAR, this was d/w patient using [employer] video translation service at bedside on 02/20/2019. May transfer to med floor if ok with Cardiology, dc planning encourage po intake of any diet he likes, no restrictions, has loss of appetite with fingerstick dropping down to 50's off dm meds x 4 days. needs dulcolax suppository, pt is constipated, likely cause for loss of appetite ?, no nausea, abd is benign clinically
[2019-02-22] MEDS ORDERED: Warfarin Sodium 2.5 MG TAB PO SCH (17:00)
[2019-02-22] MEDS: Atorvastatin Calcium 10 MG TAB PO SCH (20:41)
[2019-02-22] MEDS: Lidocaine Patch Removal 1 EACH TOP SCH (20:42)
[2019-02-23 04:18] LABS: INR-International Normal Ratio 3.3; Prothrombin Time 33.2 SEC (12.0-14.7)
[2019-02-23 04:32] LABS: #Eosinphils 0.1 thou/uL (0.0-0.7); #Lymphocytes 0.6 thou/uL (1.20-3.40); #Monocytes 0.8 thou/uL (0.11-0.59); #Neutrophils 7.2 thou/uL (1.40-6.50); %Eosinophils 0.7 % (0.0-10.0); %Lymphocytes 7.1 % (21.0-51.0); %Monocytes 9.4 % (0.0-10.0); %Neutrophils 82.8 % (42.0-75.0); Hemoglobin 9.1 g/dL (14.0-18.0); Mean Corpuscular HGB CONC 32.3 g/dL (32.0-36.0); Mean Corpuscular Hemoglobin 30.5 pg (27.0-31.0); Mean Corpuscular Volume 94.5 fL (78.0-98.0); Mean Platelet Volume 7.4 fL (7.4-10.4); Platelet Count 202 thou/uL (130-400); RBC Distribution Width 17.2 % (11.5-14.5); Red Blood Cell (RBC) Count 2.99 mill/uL (4.70-6.10); White Blood Cell (WBC) Count 8.7 thou/uL (4.8-10.8)
[2019-02-23] MEDS: Ondansetron ODT 4 MG TAB PO PRN (06:09)
[2019-02-23] MEDS: Docusate 100 MG CAP PO SCH ×2 (08:08→20:23)
[2019-02-23] MEDS: Lidocaine 5% Patch TD SCH (08:08)
[2019-02-23] MEDS: Lisinopril 2.5 MG TAB PO SCH (08:08)
[2019-02-23] MEDS: Sevelamer Carbonate 800 MG TAB PO SCH ×3 (08:08→16:50)
[2019-02-23] MEDS: Polyethylene Glycol 3350 17 GM Packet PO SCH (08:08)
[2019-02-23] MEDS: traMADol HCl 50 MG TAB PO PRN (10:21)
--- NOTE | 2019-02-23 10:28 | CON ---
DATE OF CONSULTATION: 02/23/2019 CHIEF COMPLAINT: Right knee pain. HISTORY OF PRESENT ILLNESS: Mr. Zeng is a 73-year-old male with multiple medical problems to include dysphagia, coronary artery disease, chronic anemia, AICD placement, diabetes, hyperlipidemia, end-stage renal disease on dialysis, chronic congestive heart failure, and hyperglycemia. The patient had a fall, had a hematoma in his right knee. The patient is currently resting in bed, still continued to have pain in his knee, a little when move his toes. Soft compartments. Large effusion. INR resolving down to 3. ASSESSMENT AND PLAN: The patient will follow up with me in a couple of weeks. Remain touchdown weightbearing. May come out of the knee immobilizer. Begin range of motion activities for standing up and going. The patient will likely need rehab for a period of time and advised to continue his dialysis. Discussed this with business education teacher, he understands this. He will follow up as we discussed with Dr. Mcneal. Job ID: [id number]
--- NOTE | 2019-02-23 12:18 | PQF ---
DATE: 02-23-19 ATTN: DR. STEVEN BUCKLEY Please exercise your independent, professional judgment in responding to the clarification form. Clinical indicators are provided on the bottom of this form for your review Please check appropriate box(s) to clarify if the following diagnosis has been ruled in or ruled out: PNEUMONIA [ ] Ruled in diagnosis [ ] Continue to treat [ ] Resolved [ x ] Ruled out diagnosis [ ] Other diagnosis [ ] Unable to determine In addition, please specify: Present on Admission (POA): [ ] Yes [ ] No [ ] Unable to determine For continuity of documentation, please document condition throughout progress notes and discharge summary. Thank You. CLINICAL INDICATORS - SIGNS / SYMPTOMS / LABS / RESULTS AND LOCATION IN MR: ER DX 02-19-19: FALL, PNA, SYNCOPE H&P 02-19-19: THE PATIENT WAS STARTED ON ANTIBIOTICS WITH LEVAQUIN AND ZOSYN DUE TO POSSIBLE PNEUMONIA NOTED ON THE CHEST XRAY. TEMP: 02-21-19: 99.7 02-22-19: 100.5, 100.1 RISK FACTORS / RESULTS AND LOCATION IN MR: H&P: THE PATIENT STATES THE SPUTUM RANGES FROM BEING YELLOW IN COLOR AND AT TIMES BROWN IN COLOR, EVERY TIME HE DRINKS WATER, JE OFTEN CHOKES AND COUGHS TREATMENTS / RESULTS AND LOCATION IN MR: H&P 02-19-19: THE PATIENT WAS STARTED ON ANTIBIOTICS WITH LEVAQUIN AND ZOSYN DUE TO POSSIBLE PNEUMONIA NOTED ON THE CHEST XRAY. (This form is maintained as a part of the permanent medical record) 2014 [employer]. All Rights Reserved THERON [email or web address] Office: [phone] [facility]
--- NOTE | 2019-02-23 12:44 | PDOC.HOSPP ---
- Subjective Encounter Date: 02/23/19 Encounter Time: 09:45 Subjective: feels better has not ambulated yet but stood with PT per patient - Objective Vital Signs & Weight: Vital Signs (12 hours) Temp Pulse Resp BP Pulse Ox 02/23/19 11:17 97.9 F 90 18 114/60 95 02/23/19 07:51 97.7 F 97 18 130/66 96 02/23/19 07:30 74 72 H 94 L 02/23/19 04:00 98.3 F 67 16 131/69 97 Weight Weight 143 lb 4.8 oz I&O: 02/22/19 02/23/19 02/24/19 06:59 06:59 06:59 Intake Total 1450 1180 Output Total 0 4000 Balance 1450 -2820 Result Diagrams: 02/23/19 03:46 02/22/19 04:19 Additional Labs: Accuchecks 02/23/19 02/23/19 02/22/19 11:03 05:05 20:27 POC Glucose 336 H 259 H 175 H 02/22/19 02/22/19 02/22/19 19:39 18:14 15:05 POC Glucose 165 H 91 74 02/22/19 12:59 POC Glucose 93 Hospitalist ROS - Medication Medications: Active Medications Generic Name Dose Route Start Last Admin Trade Name Freq PRN Reason Stop Dose Admin Acetaminophen 650 mg 02/19/19 18:37 02/22/19 20:41 Tylenol PO 650 mg Q4H PRN Administration Headache/Fever/Mild Pain (1-3) Albuterol/Ipratropium 3 ml 02/20/19 01:00 02/23/19 07:30 Duoneb NEB 3 ml [id number] FISH Administration Atorvastatin Calcium 10 mg 02/20/19 21:00 02/22/19 20:41 Lipitor PO 10 mg HS FISH Administration Bisacodyl 10 mg 02/22/19 11:57 02/23/19 04:02 Dulcolax SC 10 mg Q8H PRN Administration Constipation Dextrose/Water 25 gm 02/19/19 18:33 02/22/19 09:09 Dextrose 50% SLOW IVP 25 gm PRN PRN Administration Hypoglycemia Docusate Sodium 100 mg 02/21/19 09:00 02/23/19 08:08 Colace PO 100 mg BID FISH Administration Insulin Human Lispro 0 units 02/19/19 18:33 02/23/19 11:15 Humalog SC 5 units .MILD SLIDING SCALE PRN Administration Mild Correctional Scale Isosorbide Mononitrate 120 mg 02/21/19 09:00 02/23/19 08:08 Imdur PO 120 mg QAM FISH Administration Lidocaine 1 patch 02/21/19 09:00 02/23/19 08:08 Lidoderm 5% Patch TD 1 patch 0900 FISH Administration Lisinopril 2.5 mg 02/21/19 09:00 02/23/19 08:08 Zestril PO 2.5 mg DAILY FISH Administration Metoprolol Succinate 25 mg 02/21/19 09:00 02/23/19 08:08 Toprol Xl PO 25 mg DAILY FISH Administration Miscellaneous Medication 1 each 02/21/19 21:00 02/22/19 20:42 Lidocaine Patch Removal TOP 1 each 2100 FISH Administration Ondansetron HCl 4 mg 02/19/19 18:37 02/23/19 06:09 Zofran Odt PO 4 mg Q6H PRN Administration Nausea/Vomiting Polyethylene Glycol 17 gm 02/21/19 09:00 02/23/19 08:08 Miralax PO 17 gm DAILY FISH Administration Sevelamer Carbonate 3,200 mg 02/20/19 12:00 02/23/19 11:25 Renvela PO 3,200 mg TID-WM FISH Administration Tramadol HCl 50 mg 02/20/19 11:43 02/23/19 10:21 Ultram PO 50 mg Q6H PRN Administration Moderate Pain (4-6) - Exam General Appearance: NAD, awake alert Eye: PERRL, anicteric sclera ENT: no oropharyngeal lesions, moist mucosa Neck: supple, no JVD Heart: RRR, no murmur Respiratory: no wheezes, no rales Gastrointestinal: soft, non-tender, non-distended, normal bowel sounds Extremities: no cyanosis, no edema Extremities - other findings: right knee effusion and tenderness+ Neurological: cranial nerve grossly intact, no focal deficits Hosp A/P (1) Hematoma of right thigh Code(s): S70.11XA - CONTUSION OF RIGHT THIGH, INITIAL ENCOUNTER Status: Acute Qualifiers: Encounter type: subsequent encounter Qualified Code(s): S70.11XD - Contusion of right thigh, subsequent encounter (2) Dysphagia Code(s): R13.10 - DYSPHAGIA, UNSPECIFIED Status: Chronic (3) CAD (coronary artery disease) Code(s): I25.10 - ATHSCL HEART DISEASE OF [place] CORONARY ARTERY W/O ANG PCTRS Status: Chronic Qualifiers: Coronary Disease-Associated Artery/Lesion type: [place] artery [place] vs. transplanted heart: tribal heart Associated angina: without angina Qualified Code(s): I25.10 - Atherosclerotic heart disease of [place] coronary artery without angina pectoris (4) HTN (hypertension) Code(s): I10 - ESSENTIAL (PRIMARY) HYPERTENSION Status: Chronic Qualifiers: Hypertension type: essential hypertension Qualified Code(s): I10 - Essential (primary) hypertension (5) Chronic anemia Code(s): D64.9 - ANEMIA, UNSPECIFIED Status: Chronic (6) AICD (automatic cardioverter/defibrillator) present Code(s): Z95.810 - PRESENCE OF AUTOMATIC (IMPLANTABLE) CARDIAC DEFIBRILLATOR Status: Chronic (7) Diabetes mellitus type 2 in nonobese Code(s): E11.9 - TYPE 2 DIABETES MELLITUS WITHOUT COMPLICATIONS Status: Chronic (8) Dyslipidemia Code(s): E78.5 - HYPERLIPIDEMIA, UNSPECIFIED Status: Chronic (9) ESRD (end stage renal disease) on dialysis Code(s): N18.6 - END STAGE RENAL DISEASE; Z99.2 - DEPENDENCE ON RENAL DIALYSIS Status: Chronic (10) Chronic systolic CHF (congestive heart failure), NYHA class 3 Code(s): I50.22 - CHRONIC SYSTOLIC (CONGESTIVE) HEART FAILURE Status: Chronic (11) Hypoglycemia Code(s): E16.2 - HYPOGLYCEMIA, UNSPECIFIED Status: Acute - Plan has known h/o chf with systolic dysfunction, current ef is 25% HD per neph adv inr down to 3, pt is high risk for falls and coumadin will be permanently dc'd. pain control, ambulate per ortho adv, rehab/swing bed hemostable has known h/o dysphagia per patient wants to be DNAR, this was d/w patient using [employer] video translation service at bedside on 02/20/2019. May dc anytime if accepted to rehab/swing bed encourage po intake of any diet he likes, no restrictions, has loss of appetite with labile dm off dm meds x 5 days. bowel regimen to prevent constipation.
[2019-02-23 13:44] VITALS: BMI 23.3
--- NOTE | 2019-02-23 17:37 | EKG ---
Test Reason : Blood Pressure : / mmHG Vent. Rate : 098 BPM Atrial Rate : 098 BPM P-R Int : 146 ms QRS Dur : 168 ms QT Int : 446 ms P-R-T Axes : 058 267 078 degrees QTc Int : 569 ms Normal sinus rhythm Right bundle branch block Inferior infarct , age undetermined Abnormal ECG Confirmed by BHARAT AMBROSE (2) on 02/23/2019 5:36:28 PM Referred By: Confirmed By:BHARAT AMBROSE
--- NOTE | 2019-02-23 17:44 | PRG ---
DATE OF SERVICE: 02/23/2019 SUBJECTIVE: This is a 73-year-old gentleman, being seen for end-stage renal disease. The patient denied nausea, vomiting, or chest pain. OBJECTIVE: CONSTITUTIONAL: The patient is awake and alert. VITAL SIGNS: Afebrile, pulse 90, breathing 16, blood pressure 114/60. GENERAL APPEARANCE AND MENTAL STATUS: Fair. HEAD/NECK: Normocephalic. Atraumatic. EYES: EOMI. No deformity. EARS: Clear. No ulcers. NOSE: Intact. No lesions. MOUTH: Clear. No discharge. THROAT: Clear. No exudate. LUNGS: Clear. No crackles. CARDIAC: S1, S2. No rub. ABDOMEN: Benign. Bowel sounds positive. GENITALIA/RECTUM: Haney absent. BACK/EXTREMITIES: Edema 0+. NEUROLOGICAL: Alert and motor intact. SKIN: LYMPHATICS: LABORATORY DATA: Hemoglobin 9.1. ASSESSMENT: 1. Stage 6 chronic kidney disease. Continue hemodialysis. 2. Hypertension, stable. 3. Anemia, stable. 4. Medication based on GFR appropriate. Job ID: [id number]
[2019-02-23] MEDS: Atorvastatin Calcium 10 MG TAB PO SCH (20:23)
[2019-02-23] MEDS: Lidocaine Patch Removal 1 EACH TOP SCH (20:23)
[2019-02-23] MEDS ORDERED: Atorvastatin Calcium 10 MG TAB PO SCH (21:00)
[2019-02-24 05:01] LABS: #Eosinphils 0.2 thou/uL (0.0-0.7); #Lymphocytes 0.8 thou/uL (1.20-3.40); #Monocytes 0.7 thou/uL (0.11-0.59); #Neutrophils 6.5 thou/uL (1.40-6.50); %Eosinophils 2.8 % (0.0-10.0); %Lymphocytes 9.2 % (21.0-51.0); %Monocytes 8.8 % (0.0-10.0); %Neutrophils 79.2 % (42.0-75.0); Hemoglobin 8.1 g/dL (14.0-18.0); Mean Corpuscular HGB CONC 31.9 g/dL (32.0-36.0); Mean Corpuscular Hemoglobin 30.3 pg (27.0-31.0); Mean Platelet Volume 7.3 fL (7.4-10.4); Platelet Count 195 thou/uL (130-400); RBC Distribution Width 16.2 % (11.5-14.5); Red Blood Cell (RBC) Count 2.67 mill/uL (4.70-6.10); White Blood Cell (WBC) Count 8.2 thou/uL (4.8-10.8)
[2019-02-24 05:04] LABS: INR-International Normal Ratio 1.7; Prothrombin Time 20.2 SEC (12.0-14.7)
[2019-02-24 05:14] LABS: Cardiac Risk 3.1 (Less than 4.5)
[2019-02-24] MEDS: Sevelamer Carbonate 800 MG TAB PO SCH ×3 (09:26→17:20)
[2019-02-24] MEDS: Docusate 100 MG CAP PO SCH (11:40)
[2019-02-24] MEDS: Polyethylene Glycol 3350 17 GM Packet PO SCH (11:41)
[2019-02-24] MEDS: Lidocaine 5% Patch TD SCH (11:41)
[2019-02-24] MEDS: Lisinopril 2.5 MG TAB PO SCH (11:41)
--- NOTE | 2019-02-24 11:56 | PRG ---
DATE OF SERVICE: 02/24/2019 SUBJECTIVE: A 73-year-old gentleman being seen for end-stage renal disease. The patient denied nausea, vomiting, or chest pain. OBJECTIVE: CONSTITUTIONAL: The patient is awake and alert. VITAL SIGNS: Pulse 75, breathing 16, and blood pressure 123/64. GENERAL APPEARANCE AND MENTAL STATUS: Fair. HEAD/NECK: Normocephalic. Atraumatic. EYES: EOMI. No deformity. EARS: Clear. No ulcers. NOSE: Intact. No lesions. MOUTH: Clear. No discharge. THROAT: Clear. No exudate. LUNGS: Clear. No crackles. CARDIAC: S1, S2. No rub. ABDOMEN: Benign. Bowel sounds positive. GENITALIA/RECTUM: Haney absent. BACK/EXTREMITIES: Edema 0+. NEUROLOGICAL: Alert and motor intact. SKIN: LYMPHATICS: LABORATORY DATA: Reviewed. ASSESSMENT AND PLAN: 1. chronic kidney disease. Continue hemodialysis. 2. Hypertension, stable. 3. Anemia, stable. 4. Medication based on GFR appropriate. Job ID: [id number]
[2019-02-24 16:38] VITALS: BP 110/55; TEMP 98.9
[2019-02-24] MEDS ORDERED: Atorvastatin Calcium 10 MG TAB PO SCH (21:00)
--- NOTE | 2019-02-25 16:19 | DIS ---
DATE OF ADMISSION: 02/19/2019 DATE OF DISCHARGE: 02/24/2019 DISCHARGE DISPOSITION: Inpatient rehab. PRIMARY DISCHARGE DIAGNOSES: Right thigh hematoma, tibial fracture with right knee effusion, coagulopathy due to Coumadin, chronic dysphagia, coronary artery disease, hypertension, chronic anemia, AICD, diabetes mellitus type 2, dyslipidemia, end-stage renal disease, on hemodialysis, chronic congestive heart failure with systolic dysfunction. PROCEDURES DONE DURING HOSPITALIZATION: Lower extremity CT scan done showed findings suspicious for deep intramuscular hematoma of the distal medial thigh in the region of vastus intermedius and vastus medialis obliquus musculature, there is moderate to prominent right-sided joint effusion, healed fracture deformity and postoperative change of the proximal tibia and fibula. 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 Echo with 2D Doppler done showed ejection fraction of 25%, inferoposterior wall severe hypokinesis/ akinesis, moderate mitral regurgitation. CT brain done showed no acute bleed or infarct. Blood cultures x2, no growth. H and H 8 and 25, platelet count 195, MCV is 95, white count of 8.2. INR peaked up to 8.0 on the with discharge number of 1.7. The patient is off Coumadin now. Total cholesterol 78, triglycerides 62, LDL 41 , HDL 25. HBS antigen is nonreactive. DISCHARGE MEDICATIONS: 1. Imdur 120 mg p.o. q.a.m. 2. Lisinopril 2.5 mg p.o. daily. 3. Toprol-XL 50 mg daily. 4. Renvela 3200 mg p.o. 3 times daily. 5. Simvastatin 20 mg p.o. at bedtime. 6. Tylenol 3 q.6 hourly p.r.n. 7. Colace 100 mg p.o. twice daily. 8. Lidoderm patch 5% transdermal daily. 9. Ultram 3 times daily p.r.n. for pain. ALLERGIES: NO KNOWN DRUG ALLERGIES. INPATIENT CONSULT: 1. Dr. Morris/Dr. Dc for Cardiology. 2. Dr. Caraballo for Orthopedic Surgery. 3. Dr. Wall for Nephrology. BRIEF COURSE DURING HOSPITALIZATION: The patient initially came into ER with complaints of right knee pain and swelling. He had INR of 5. He had multiple imaging studies for the right knee done, which showed old healing fracture of right tibial plateau. He also had moderate to severe effusion of the right knee. Mr. Zeng also apparently passed out while drinking water. In view of this history and prior history of heart failure, patient was admitted to telemetry. He has had consultation with Dr. Caraballo for orthopedic surgery, Dr. Morris/Dr. Dc for Cardiology. He has had a repeat echo done which ejection fraction of around 25% . The patient had mild volume overload on arrival, which has been resolved with [id number] dialysis. His right knee is placed in immobilizer. He is touch toe weightbearing on the right side. In view of multiple medical issues and deconditioning, the patient is being discharged to inpatient rehab prior to going home. The patient was on Coumadin prior to arrival here for atrial fibrillation. This has been discontinued due to history of multiple falls, old fractures including rib and current knee effusion and coagulopathy. His INR is 1.7 at present. He has not had any intracranial bleeding and has had 2 CAT scans done which have not shown the same. He is hemodynamically stable, neurologically stable for discharge. He has been cleared by all specialists for discharge. A total of 35 minutes was spent on discharge plan. Please note I have seen and examined the patient on the day of discharge. Job ID: [id number] [facility]
--- NOTE | 2019-02-25 20:10 | PQF ---
MICHELL HOPPER VINAYA KUMAR MD [id number] CLINICAL DOCUMENTATION CLARIFICATION FORM: POST DISCHARGE Addendum to original discharge summary date: ____ Late entry note date: __ DATE: 02/24/19 ATTN: Jo Mendez Please exercise your independent, professional judgment in responding to the clarification form. Clinical indicators are provided on the bottom of this form for your review In your clinical opinion based on clinical findings below, can you please specify of Hematoma if: Please check appropriate box(s): [ ] Traumatic Hematoma [ x ] Non-Traumatic Hematoma due to Coumadin [ ] Other diagnosis [ ] Unable to determine In addition, please specify: Present on Admission (POA): [ x ] Yes [ ] No [ ] Unable to determine For continuity of documentation, please document condition throughout progress notes and discharge summary. Thank You. CLINICAL INDICATORS - SIGNS / SYMPTOMS / LABS H&P p1 02/19 Kimberlyn SAM complaints of severe pain and swelling in the R knee H&P p1 02/19 Kimberlyn SAM The patient states he had fall yesterday H&P p1 02/19 Kimberlyn SAM He was noted to have s supratherapeutic INR of 5.5 H&P p1 02/19 Kimberlyn SAM He underwent an x-ray of his R knee which showed soft tissue swelling and joint effusion H&P p4 02/19 Kimberlyn ANGEL-Denny RLE pain found to have a hematoma involving the right thigh and joint effusion Orthopedic Consult p2 02/20 Dr Caraballo Right thigh hematoma, this is likely secondary to his supratherapeutic INR which was five RISK FACTORS H&P p1 02/19 - 73-year-old gentlemen H&P p2 02/19 - history of CA, CAD on anticoagulant DS p1 02/24 Coagulopathy due to Coumadin TREATMENTS: H&P p4 02/19 - Hold Coumadin Orthopedic Consult 02/20 Hui Cosby Orthopedic Consult p2 02/20 Knee immobilizer (This form is maintained as a part of the permanent medical record) 2014 [email or web address]. All Rights Reserved [email or web address] [not provided] [email or web address]
--- NOTE | 2019-02-27 21:55 | EKG ---
Test Reason : Blood Pressure : / mmHG Vent. Rate : 075 BPM Atrial Rate : 075 BPM P-R Int : 162 ms QRS Dur : 178 ms QT Int : 508 ms P-R-T Axes : 031 -39 085 degrees QTc Int : 567 ms Atrial-sensed ventricular-paced rhythm Abnormal ECG Confirmed by KELVIN CLOUD DO ([id number]), editor department SANDEEP HILL ([id number]) on 02/27/2019 9:54:38 PM Referred By: Confirmed By:KELVIN CLOUD DO
== END 2019-02-24 18:55 | DRG 555 ==
LOC: ERS 12:38 → 2NO 22:37
PROVIDERS: ADMIT Internal Medicine; ATTEND Internal Medicine
PROC: 4B02XTZ Measurement of Cardiac Defibrillator, External Approach (ICD-10-PCS; 2019-02-21)
PROC: 30233N1 Transfusion of Nonautologous Red Blood Cells into Peripheral Vein, Percutaneous Approach (ICD-10-PCS; principal; 2019-02-23)
PROC: 5A1D70Z Performance of Urinary Filtration, Intermittent, Less than 6 Hours Per Day (ICD-10-PCS; 2019-02-23)
DX: M79.81 Nontraumatic hematoma of soft tissue (principal); N18.6 End stage renal disease; D68.32 Hemorrhagic disorder due to extrinsic circulating anticoagulants; I50.22 Chronic systolic (congestive) heart failure; I13.2 Hypertensive heart and chronic kidney disease with heart failure and with stage 5 chronic kidney disease, or end stage renal disease; M25.051 Hemarthrosis, right hip; Z66 Do not resuscitate; T45.515A Adverse effect of anticoagulants, initial encounter; I25.10 Atherosclerotic heart disease of native coronary artery without angina pectoris; E78.5 Hyperlipidemia, unspecified; E11.22 Type 2 diabetes mellitus with diabetic chronic kidney disease; D63.1 Anemia in chronic kidney disease; R13.10 Dysphagia, unspecified; I48.0 Paroxysmal atrial fibrillation; I25.5 Ischemic cardiomyopathy; E11.649 Type 2 diabetes mellitus with hypoglycemia without coma; Z95.5 Presence of coronary angioplasty implant and graft; S82.141D Displaced bicondylar fracture of right tibia, subsequent encounter for closed fracture with routine healing; Z99.2 Dependence on renal dialysis; Z95.810 Presence of automatic (implantable) cardiac defibrillator; I25.2 Old myocardial infarction; Z79.82 Long term (current) use of aspirin; Z79.899 Other long term (current) drug therapy; Z79.01 Long term (current) use of anticoagulants
CPT/HCPCS: 36415; 36416; 36430; 70450; 71045; 71250; 80048; 80053; 80061; 83605; 83735; 83880; 84484; 85025; 85610; 85730; 86850; 86900; 86901; 87040; 87340; 93005; 93010; 93306; 94640; 96365; 96366; 96367; J1956; J2543; J3430; J3490; J7620; P9016; Q0162; S0028